=== PATIENT | male | born 1950 | race Caucasian/White ===

== ENCOUNTER → 2016-08-28 | Outpatient (CLI) | payer OTHER, MEDICARE ==
[~2016-08-28] MED LIST: AMLO-114 PO; ANDG TOP; ASCO500T16 PO; B-COCAP2 PO; CHOL100027 PO; LISI40TA PO; MAGN400T6 PO; OMEG12006 PO; VITA100C4 PO; VITATAB19 PO; ZINC30TA3 PO; calcium PO
[2016-08-28 13:42] LABS: COMPLETE YES; IG% 0.4 %; LYMPH % 46.5 %; LYMPH ABS # 2.17 K/uL (1.2-3.4); MEAN CELL VOLUME 88.2 fL (80-100); MEAN CORPUSCULAR HEMOGLOBIN 29.6 pg (25-34); MEAN CORPUSCULAR HGB CONC 33.6 g/dl (32-36); MONO % 8.6 %; NEUT % 44.5 %; PLATELET COUNT 132 K/uL (130-400); RED BLOOD COUNT 5.33 M/uL (4.7-6.1); WHITE BLOOD COUNT 4.67 K/uL (4.8-10.8)
[2016-08-28 14:14] LABS: CALCIUM 9.2 mg/dl (8.5-10.1)
[2016-08-28 14:25] LABS: ALB/GLOB RATIO 1.3 (0.9-2); ALT/SGPT 33 U/L (12-78); AST/SGOT 25 U/L (15-37); BLOOD UREA NITROGEN 24 mg/dl (7-18); BUN/CREATININE RATIO 24.9 (10-20); CARBON DIOXIDE 32 mmol/L (21-32); CHLORIDE 106 mmol/L (98-107); CHOLESTEROL 211 mg/dl (0-200); CHOLESTEROL/HDL RATIO 3.8; CREATININE 0.96 mg/dl (0.60-1.40); GLUCOSE 94 mg/dl (70-99); HDL CHOLESTEROL 55 mg/dl; LDL CHOLESTEROL CALCULATED 133 mg/dl; PHOSPHORUS 2.4 mg/dl (2.5-4.9); POTASSIUM 3.9 mmol/L (3.5-5.1); SODIUM 141 mmol/L (136-145); TRIGLYCERIDES 114 mg/dl (0-150); URIC ACID 6.3 mg/dl (2.6-7.2); VERY LOW DENSITY LIPOPROT CALC 23 mg/dl
[2016-08-28 14:34] LABS: ALKALINE PHOSPHATASE 53 U/L (45-117); C-REACTIVE PROTEIN < 0.29 mg/dl (0-0.29); FERRITIN 36.6 ng/ml (8.0-388.0); TOTAL IRON BINDING CAPACITY 308 mcg/dl (250-450)
[2016-08-28 14:59] LABS: ESTIMATED AVERAGE GLUCOSE 103 mg/dl; HA1C FLAG Normal (Normal)
[2016-08-31 01:12] LABS: GLIADIN DEAMIDATED IgA AB 2 UNITS (<20); GLIADIN DEAMIDATED IgG AB 3 UNITS (<20)
--- NOTE | 2016-09-11 11:50 | CODING QUERY MEDICAL NECESSITY ---
SUPPORTING DIAGNOSIS NEEDED Dr. Cerrato, A supporting diagnosis is required for the test/procedure performed on this patient in order for us to be reimbursed by the patient's insurance. Please provide a supporting diagnosis for the following test/procedure listed below next to the test name along with your signature. *If there is no additional diagnosis for this patient that would support the following test/procedure please document that below next to the test/procedure. Test(s)/Procedure(s) that require a supporting diagnosis: * [id number] PSA DIAGNOSIS: DATE OF SERVICE: 08/28/16 Provider Signature: Date: Thank you Ezequiel Heredia [facility] Once completed, please kindly fax back to [phone] For questions please call [phone]
== END | disposition home or self-care (01) ==
LOC: C.LABBC 11:47
PROVIDERS: ATTEND Family Medicine
DX: R73.09 Other abnormal glucose (principal); E55.9 Vitamin D deficiency, unspecified; D51.9 Vitamin B12 deficiency anemia, unspecified; R53.83 Other fatigue; M25.50 Pain in unspecified joint; N40.0 Benign prostatic hyperplasia without lower urinary tract symptoms

== ENCOUNTER → 2016-09-17 | Outpatient (CLI) | payer OTHER, MEDICARE ==
--- NOTE | 2016-09-17 15:29 | DIAGNOSTIC IMAGING REPORT ---
LEFT FIRST TOE RADIOGRAPHS CLINICAL HISTORY: Left toe injury 3 months ago. COMPARISON: None FINDINGS: Alignment of the left first toe is anatomic. A 3 mm bone fragment is noted along the medial aspect of the interphalangeal joint of the left first toe. There is associated soft tissue swelling. This represents an age indeterminate avulsed bone fragment. No additional fractures are identified. There is minimal arthritis within multiple articulations. IMPRESSION: 3 mm bone fragment along the medial aspect of the interphalangeal joint of the left first toe which represents an age indeterminate tiny avulsed bone fragment with associated soft tissue swelling. Electronically signed by: René Llamas M.D. 09/17/2016 3:28 PM Dictated Date/Time: 09/17/2016 3:26 PM
== END | disposition home or self-care (01) ==
LOC: C.RADBC 15:03
PROVIDERS: ATTEND Family Medicine
DX: S92.402A Displaced unspecified fracture of left great toe, initial encounter for closed fracture (principal); X58.XXXA Exposure to other specified factors, initial encounter

== ENCOUNTER → 2017-04-30 | Outpatient (CLI) | payer OTHER, MEDICARE ==
[2017-04-30 17:19] LABS: BLOOD UREA NITROGEN 26 mg/dl (7-18); CREATININE 0.97 mg/dl (0.60-1.40)
== END | disposition home or self-care (01) ==
LOC: C.LABBC 14:24
DX: H90.42 Sensorineural hearing loss, unilateral, left ear, with unrestricted hearing on the contralateral side (principal)

== ENCOUNTER → 2017-05-07 | Outpatient (CLI) | payer OTHER, MEDICARE ==
[~2017-05-07] MED LIST changes: +GADAVIST IV PRN
--- NOTE | 2017-05-07 14:09 | DIAGNOSTIC IMAGING REPORT ---
BRAIN COMBO FOR IAC HISTORY: 66 years-old Male H93.12 Tinnitus of left [id number] MALE WITH LEFT GREATER TH acute left-sided hearing loss COMPARISON: None available TECHNIQUE: Multiplanar multisequence MRI of the brain was obtained both with and without the use of 8 mL Gadavist utilizing internal auditory canal protocol. FINDINGS: The large [id number] 3d specialist localizer images demonstrate no gross abnormality. There is no restricted diffusion to suggest acute or subacute infarction. The midline structures including the corpus callosum, brainstem, optic chiasm, pituitary and pineal glands appear unremarkable in the sagittal T1 series. There is no cerebellar tonsillar herniation. Degenerative changes of the cervical spine are noted. There is no acute intracranial hemorrhage, midline shift, abnormal extra-axial collections or hydrocephalus. Mild degree of T2/FLAIR hyperintensities within the basal ganglia, periventricular and subcortical white matter are nonspecific however favor mild chronic microvascular ischemic changes. The major flow voids at the level of the skull base appear to be patent. Moderate mucoperiosteal thickening about the left maxillary sinus with mild mucosal thickening on the right. Polypoid mucosal thickening measuring up to 1.9 cm involves the posterior right maxillary antrum. Mild ethmoid sinus disease. Mastoid air cells are clear. Scalp, calvarium and soft tissues are within normal limits. The orbits are unremarkable. Indeterminate 4 mm skin lesion about the right aspect of the nose. The bilateral internal artery canals, 7th and 8th cranial nerves appear normal. No cerebellar pontine angle mass. The bilateral cisternal portions of the 5th cranial nerves are also within normal limits. No abnormal intra-axial or extra-axial enhancement. IMPRESSION: 1. No acute intracranial abnormality identified. 2. Normal appearance of the bilateral internal auditory canals, 7th and 8th cranial nerves without focal mass or abnormal enhancement. 3. Probable mild chronic microvascular ischemic changes. 4. Paranasal sinus disease as above. The above report was generated using voice recognition software. It may contain grammatical, syntax or spelling errors. Electronically signed by: Vernon Finney M.D. 05/07/2017 2:07 PM Dictated Date/Time: 05/07/2017 2:00 PM
== END | disposition home or self-care (01) ==
LOC: C.MRIBC 12:58
DX: H93.12 Tinnitus, left ear (principal); J01.80 Other acute sinusitis

== ENCOUNTER 2017-10-14 04:33 | Emergency (ER) | payer OTHER, MEDICARE ==
[~2017-10-14] VITALS: Ht 180.3 cm; Wt 82.0 kg
[~2017-10-14 04:33] MED LIST changes: -AMLO-114 PO; +AMLO10TA3 PO; -GADAVIST IV PRN; +OXYC-57 PO; +VITA100C2 PO; -VITA100C4 PO
[2017-10-14 04:37] VITALS: TEMP 36.7; Ht 180.3 cm; Wt 82.0 kg
[2017-10-14] MEDS ORDERED: FENTANYL CITRATE INJ 50 MCG/1 ML 2 ML VIAL IV STA (04:45)
[2017-10-14] MEDS ORDERED: LABETALOL HCL IV 5 MG/ML 20ML IV STA (04:45)
--- NOTE | 2017-10-14 04:52 | EMERGENCY ROOM VISIT NOTE ---
History First contact with patient: 04:36 Chief Complaint: ABDOMINAL PAIN Stated Complaint: HIGH BLOOD PRESSURE, CHEST PAIN History of Present Illness The patient is a 67 year old male who presents to the Emergency Room for evaluation of abdominal pain. Notes he recently had BP meds changed to Losartan about 3 weeks ago and since running mildly HTN. Throughout last 24 hours notes BP has been more and more elevated. This evening awoke with severe , tearing epigastric abdominal pain. Radiates bilateral flanks. Associated nausea and some lower substernal chest pain. Took extra Losartan without improvement followed by old doses of his Lisinopril and Amlodipine. Rest makes mildly better. Pain worse with walking/moving/sitting up. Denies trauma, injury. No fevers, chills, shob, headache, neck pain, vomiting, rashes, distension, leg swelling, urinary/bowel symptoms. This has not occurred previously. 2 Months ago he had left inguinal hernia repair without complication. Denies previous CT abdomen. Admits he ate dinner late and notes broccoli may have been bad. Past Medical History: HTN, low testosterone, DLP Past Surgical History: Left inguinal Hernia Repair 2018, Left Knee Surgery, Orchiectomy, Rectal Mass Removal (DFSP cancer) Past Family History: No cardiac nor aortic issues that he is aware of. Mother with dementia, father DMII&prostate [place] Social history: Periodic ETOH, No Drugs, No Smoking. Vegetarian. History of [employer]. . Review of Systems See HPI for pertinent positives & negatives. A total of 10 systems reviewed and were otherwise negative. Social History Smoking Status: Never Smoker Current/Historical Medications Scheduled Ascorbic Acid (Ascorbic Acid), 500 MG PO daily Calcium Carbonate-Vitamin D (Calcium 600 + D), 1 TAB PO DAILY Cholecalciferol (Vitamin D 1000 Unit), 4,000 INTER.UNIT PO DAILY Coenzyme Q10 (Ubidecarenone) (Co Q-10), 150 MG PO DAILY Losartan Potassium (Cozaar), 50 MG PO DAILY Magnesium Oxide (Mag-Ox), 400 MG PO QAM Gantt-3 Fatty Acids (Gantt 3), 1 CAP PO QAM Testosterone (Androgel), 1 PKT TOP QAM Vitamin A-Beta Carotene (Vitamin A), 1 TAB PO daily Vitamin B Cmplx/Vitc/Folic Ac (Nephrocaps), 1 CAP PO DAILY Vitamin E (Vitamin E 100 Iu), Unknown Dose PO DAILY Zinc Gluconate (Zinc), 1 TAB PO DAILY Physical Exam Vital Signs Date Time Temp Pulse Resp B/P (MAP) Pulse Ox O2 Delivery O2 Flow Rate FiO2 10/14/17 05:39 67 16 156/76 98 Room Air 10/14/17 04:46 69 10/14/17 04:37 36.7 69 20 202/105 98 Room Air Physical Exam GENERAL: Patient is very uncomfortable appearing and moderate distress. EYES: No scleral icterus, unremarkable pupils. ENT: Mucous membranes moist, no nasal congestion. NECK: No masses appreciated, no meningismus, trachea is midline. RESPIRATORY: No dyspnea. Clear to auscultation and equal bilaterally. No wheeze , no rhonchi. CARDIOVASCULAR: Regular rate and rhythm. No murmurs, rubs, gallops appreciated. GASTROINTESTINAL: Moderate epigastric TTP otherwise vague diffuse upper abdominal TTP, lower abdomen soft and non-tender. No peritonitis. Bowel sounds positive. No masses appreciated. BACK: No midline tenderness, no CVA tenderness EXTREMITIES: Normal motion all extremities, no cyanosis, no edema. NEUROLOGIC: Alert and oriented, no acute motor or sensory deficits, no focal weakness, cranial nerves grossly intact. SKIN: No rash, no jaundice, no diaphoresis. Medical Decision & Procedures ER Provider Diagnostic Interpretation: X ray results are stated below per my interpretation: Chest: 1 view: No infiltrate, no effusion, normal cardiac border. No change from 07/2017 Stat Rad Radiology results and stated below per my review and radiologist interpretation: CT HEAD: FINDINGS: No intracranial hemorrhage, abnormal intra- or extra-axial collections or parenchymal lesions are seen. The shape and configuration of the cortical sulci, basal cisterns and ventricles are within normal limits. The holland -white differentiation is preserved. No evidence of mass effect, midline shift, or edema. The osseous structures are unremarkable. The visualized portions of the paranasal sinuses are clear. IMPRESSION: Normal non-contrast CT scan of the head. Radiologist: Lebron Khanna MD CT ABDOMEN & PELVIS With Contrast: INDICATION: TECHNIQUE: Multiple, contiguous axial cuts of the abdomen and pelvis are obtained from the lung bases to the ischial tuberosities following the administration of IV contrast. Sagittal and coronal reformatted images are available. COMPARISON: FINDINGS: The lung bases are clear. The liver and spleen are normal in size and free of mass lesions. The gallbladder is mildly prominent. There is mild prominence intrahepatic ducts. Mild prominence the pancreatic duct. No focal mass noted. The adrenal gland are unremarkable. The kidneys are normal in size and contour. No lesion or hydronephrosis. The appendix is unremarkable, as is the rest of the GI tract. There is diverticulosis but there is no evidence for diverticulitis there is no inflammatory changes noted in the abdomen or pelvis. Aorta is normal caliber. No adenopathy or extraluminal air. The osseous structures are normal IMPRESSION: Unremarkable CT abdomen and pelvis. Radiologist: Lebron Khanna MD Laboratory Results 10/14/17 04:50 Red Blood Count 5.70, Mean Corpuscular Volume 89.6, Mean Corpuscular Hemoglobin 31.9, Mean Corpuscular Hemoglobin Concent 35.6, Mean Platelet Volume 9.8, Neutrophils (%) (Auto) 41.5, Lymphocytes (%) (Auto) 47.7, Monocytes (%) (Auto) 9.8, Eosinophils (%) (Auto) 0.0, Basophils (%) (Auto) 0.0, Neutrophils # (Auto) 2.54, Lymphocytes # (Auto) 2.92, Monocytes # (Auto) 0.60, Eosinophils # (Auto) 0.00, Basophils # (Auto) 0.00 10/14/17 04:50 Test 10/14/17 04:50 10/14/17 04:52 White Blood Count 6.12 K/uL (4.8-10.8) Red Blood Count 5.70 M/uL (4.7-6.1) Hemoglobin 18.2 g/dL (14.0-18.0) Hematocrit 51.1 % (42-52) Mean Corpuscular Volume 89.6 fL (80-100) Mean Corpuscular Hemoglobin 31.9 pg (25-34) Mean Corpuscular Hemoglobin Concent 35.6 g/dl (32-36) Platelet Count 119 K/uL (130-400) Mean Platelet Volume 9.8 fL (7.4-10.4) Neutrophils (%) (Auto) 41.5 % Lymphocytes (%) (Auto) 47.7 % Monocytes (%) (Auto) 9.8 % Eosinophils (%) (Auto) 0.0 % Basophils (%) (Auto) 0.0 % Neutrophils # (Auto) 2.54 K/uL (1.4-6.5) Lymphocytes # (Auto) 2.92 K/uL (1.2-3.4) Monocytes # (Auto) 0.60 K/uL (0.11-0.59) Eosinophils # (Auto) 0.00 K/uL (0-0.5) Basophils # (Auto) 0.00 K/uL (0-0.2) RDW Standard Deviation 41.5 fL (36.4-46.3) RDW Coefficient of Variation 12.8 % (11.5-14.5) Immature Granulocyte % (Auto) 1.0 % Immature Granulocyte # (Auto) 0.06 K/uL (0.00-0.02) Urine Color YELLOW Urine Appearance CLEAR (CLEAR) Urine pH 8.5 (4.5-7.5) Urine Specific [place] 1.012 (1.000-1.030) Urine Protein NEG (NEG) Urine Glucose (UA) NEG (NEG) Urine Ketones NEG (NEG) Urine Occult Blood NEG (NEG) Urine Nitrite NEG (NEG) Urine Bilirubin NEG (NEG) Urine Urobilinogen NEG (NEG) Urine Leukocyte Esterase NEG (NEG) Urine WBC (Auto) 0 /hpf (0-5) Urine RBC (Auto) 0-4 /hpf (0-4) Urine Hyaline Casts (Auto) 0 /lpf (0-5) Urine Epithelial Cells (Auto) 0-5 /lpf (0-5) Urine Bacteria (Auto) NEG (NEG) Est Creatinine Clear Calc Drug Dose 73.4 ml/min Estimated GFR () 85.7 Estimated GFR (Non- 73.9 BUN/Creatinine Ratio 24.6 (10-20) Calcium Level 9.2 mg/dl (8.5-10.1) Total Bilirubin 1.2 mg/dl (0.2-1) Direct Bilirubin 0.4 mg/dl (0-0.2) Aspartate Amino Transf (AST/SGOT) 140 U/L (15-37) Alanine Aminotransferase (ALT/SGPT) 92 U/L (12-78) Alkaline Phosphatase 87 U/L (45-117) Total Creatine Kinase 172 U/L (39-308) Creatine Kinase MB 2.5 ng/ml (0.5-3.6) Creatine Kinase MB Ratio 1.5 (0-3.0) Troponin I < 0.015 ng/ml (0-0.045) Total Protein 7.6 gm/dl (6.4-8.2) Albumin 3.9 gm/dl (3.4-5.0) Lipase 87 U/L (73-393) Bedside Hemoglobin 17.7 g/dl (14.0-18.0) Bedside Hematocrit 52 % (42-52) Bedside Sodium 144 mEq/L (135-144) Bedside Potassium 3.6 mEq/L (3.3-5.0) Bedside Chloride 101 mEq/L (101-112) Bedside Total CO2 29 mEq/l (24-31) Anion Gap 18.0 mmol/L (16-25) Bedside Blood Urea Nitrogen 28 mg/dl (7-18) Bedside Creatinine 0.9 mg/dl (0.6-1.3) Bedside Glucose (other) 101 mg/dl (70-99) Bedside Ionized Calcium (Kat) 1.22 mmol/l (1.12-1.32) Medications Administered Medications (Trade) Dose Ordered Sig/Cj Route Start Time Stop Time Status Last Admin Dose Admin Fentanyl Citrate (Fentanyl Inj) 100 mcg NOW STAT IV 10/14/17 04:45 10/14/17 04:47 DC 10/14/17 04:52 100 MCG Labetalol HCl (Normodyne IV) 10 mg NOW STAT IV 10/14/17 04:45 10/14/17 04:47 DC 10/14/17 04:53 10 MG Ondansetron HCl (Zofran Inj) 4 mg NOW STAT IV 10/14/17 05:14 10/14/17 05:15 DC 10/14/17 05:14 4 MG ECG Per My Interpretation Indication: abdominal pain Rate (beats per minute): 68 Rhythm: normal sinus Findings: no acute ischemic change, no ectopy, other (QTC 401) Comparison ECG Date: No change from 22-Jul-17 Change: no significant change Medical Decision Differential: Cholecystitis, Gallbladder disfunction, Hepatic Disfunction, Gastritis/PUD, Pancreatitis, ACS, Aortic Pathology, amongst other pathologies entertained. 67 yr old male with nausea, vomiting, epigastric pain and hypertension. This started after very stressful day yesterday and admits he may have eaten bad food yesterday. CT head done given HTN, history of cancer, and fact he was so nauseous which was fortunately negative. EKG unchanged from previous EKG. CT abdo pelv with mildly distended gallbladder (and stomach) though no acute process otherwise. Trop x 2 negative. Feeling much better though did have episode of vomiting with non-bloody and feeling much better. WBC OK. US GB with mild CBD dilation though no cholecystitis. I feel LFT bumps more likely are from vomiting than acute obstructive findings, especially given no further pain and soft abdomen. He wishes to try seeing how things do at home. He will contact PCP to see how to manage BP. He will follow up with PCP to discuss HTN , GB polyps, Polycythemia, and further work-up for findings. Stable and feels well at discharge. Will take BP med once he gets home. Reviewed symptoms requiring RTED. Head Trauma GCS Score: 15 Medication Reconcilliation Current Medication List: was personally reviewed by me Blood Pressure Screening Patient's blood pressure: Elevated blood pressure Blood pressure disposition: Referred to PCP Impression Primary Impression: Epigastric abdominal pain Additional Impressions: Severe hypertension Gallbladder polyp Elevated LFTs Polycythemia Departure Information Dispostion Home / Self-Care Condition GOOD Referrals Brennon Cerrato M.D. (PCP) Patient Instructions My [facility] Additional Instructions Please follow up with your primary care provider to discuss a few things noted during today's visit: Elevated Hemoglobin (18.2) - This is just mildly above your previous labs and may be elevated for a variety of reasons. Polyps In Gallbladder - These usually require repeat Ultrasound in 6 months to make sure no change. Hypertension - Discuss further management of blood pressure Elevated Liver Tests - Just mildly elevated which can be from a variety of reasons and should just be rechecked to make sure they normalize. Review Rest of Labs and Imaging Return if worsening pain, vomiting, fevers, passing out, or other concerns. Your blood pressure was elevated during this visit. This is quite common in many people who are being evaluated in the Emergency Department for many reasons. However, it is important that you have your Primary Care Provider recheck your blood pressure and discuss whether treatment will be needed. 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 If you develop severe headaches, chest pain, weakness in arms or legs, or other concerning symptoms call 911. Problem Qualifiers
[2017-10-14] MEDS ORDERED: OPTIRAY 320 IV PRN (05:00)
[2017-10-14 05:03] LABS: HEMATOCRIT 51.1 % (42-52); HEMOGLOBIN 18.2 g/dL (14.0-18.0); IG# 0.06 K/uL (0.00-0.02); LYMPH % 47.7 %; LYMPH ABS # 2.92 K/uL (1.2-3.4); MEAN CELL VOLUME 89.6 fL (80-100); MEAN CORPUSCULAR HEMOGLOBIN 31.9 pg (25-34); MEAN CORPUSCULAR HGB CONC 35.6 g/dl (32-36); MEAN PLATELET VOLUME 9.8 fL (7.4-10.4); MONO % 9.8 %; NEUT % 41.5 %; NEUT ABS # 2.54 K/uL (1.4-6.5); PLATELET COUNT 119 K/uL (130-400); RED CELL DISTRIBUTION WIDTH CV 12.8 % (11.5-14.5); RED CELL DISTRIBUTION WIDTH SD 41.5 fL (36.4-46.3); WHITE BLOOD COUNT 6.12 K/uL (4.8-10.8)
[2017-10-14 05:06] LABS: ISTAT CREATININE 0.9 mg/dl (0.6-1.3); ISTAT IONIZED CALCIUM 1.22 mmol/l (1.12-1.32); ISTAT POTASSIUM 3.6 mEq/L (3.3-5.0)
[2017-10-14] MEDS ORDERED: ONDANSETRON INJ 2 MG/ML 2 ML VIAL IV STA ×2 (05:14→07:29)
[2017-10-14 05:26] LABS: ALBUMIN 3.9 gm/dl (3.4-5.0); ALKALINE PHOSPHATASE 87 U/L (45-117); ALT/SGPT 92 U/L (12-78); AST/SGOT 140 U/L (15-37); BLOOD UREA NITROGEN 26 mg/dl (7-18); CALCIUM 9.2 mg/dl (8.5-10.1); CARBON DIOXIDE 28 mmol/L (21-32); CKMB 2.5 ng/ml (0.5-3.6); CREATININE 1.04 mg/dl (0.60-1.40); GLUCOSE 97 mg/dl (70-99); LIPASE 87 U/L (73-393); POTASSIUM 3.6 mmol/L (3.5-5.1); SODIUM 142 mmol/L (136-145); TOTAL PROTEIN 7.6 gm/dl (6.4-8.2)
--- NOTE | 2017-10-14 06:44 | DIAGNOSTIC IMAGING REPORT ---
CT OF THE HEAD WITHOUT CONTRAST CLINICAL HISTORY: Altered mental status. Hypertension. COMPARISON STUDY: MRI of the brain May 07, 2017. CT DOSE: 614.27 mGy.cm TECHNIQUE: Helical axial images of the head were obtained without IV contrast. Automated exposure control was utilized for the study. A dose lowering technique was utilized adhering to the principles of ALARA. FINDINGS: No acute intracranial hemorrhage, midline shift or mass effect is present. Ventricular system is normal. Basilar cisterns are patent. There are no extra-axial collections. Khan-white differentiation is preserved. There are no findings to suggest acute thrombosis or acute territorial infarct. There are no significant calvarial abnormalities. Visualized portions of the sinuses and mastoid air cells are clear. IMPRESSION: No acute intracranial findings. Electronically signed by: René Llamas M.D. 10/14/2017 6:43 AM Dictated Date/Time: 10/14/2017 6:41 AM
--- NOTE | 2017-10-14 06:45 | DIAGNOSTIC IMAGING REPORT ---
CHEST ONE VIEW PORTABLE CLINICAL HISTORY: Chest pain. COMPARISON STUDY: Chest CT October 13, 2015 and chest radiograph July 22, 2017. FINDINGS: Lung volumes are normal. There is no pneumothorax or pleural effusion. No consolidation is present. There is no evidence for pulmonary edema. Cardiac size is normal. Mediastinal contours are normal. IMPRESSION: No acute cardiopulmonary findings. Electronically signed by: René Llamas M.D. 10/14/2017 6:44 AM Dictated Date/Time: 10/14/2017 6:43 AM
[2017-10-14] MEDS ORDERED: LOSA50TA6 PO (07:04)
[2017-10-14] MEDS ORDERED: CALC-20 PO (07:04)
[2017-10-14] MEDS ORDERED: COEN150C PO (07:04)
--- NOTE | 2017-10-14 07:13 | DIAGNOSTIC IMAGING REPORT ---
ABDOMINAL ULTRASOUND, RIGHT UPPER QUADRANT HISTORY: Epigastric pain, nausea, mild distended gallbladder on CT. COMPARISON: CT of the abdomen and pelvis October 14, 2017. FINDINGS: Liver morphology is normal. No hepatic lesions are identified minimal intra and extrahepatic biliary ductal dilatation is noted. Common bile duct measures 7 mm in caliber. No common bile duct calculi identified. Pancreatic body is normal. Head and tail are obscured. No gallbladder wall thickening is noted. No sonographic Cruz sign was elicited. The gallbladder is slightly distended. Multiple echogenic nonmobile structures adherent to the gallbladder wall suggest polyps which measure up to 6 mm. A few contain color flow. No shadowing calculi are identified. Minimal sludge is noted. There is no right hydronephrosis. Right renal pelvis is prominent. IMPRESSION: 1. Multiple echogenic nonmobile structures adherent to the gallbladder wall which favor polyps and up to 6 mm. No shadowing gallstones. Mild gallbladder distention. However, no sonographic evidence of acute cholecystitis. A follow-up ultrasound in 6 months to ensure stability of the suspected polyps is recommended. 2. Minimal biliary ductal dilatation which could be correlated with obstructive liver function tests. Electronically signed by: René Llamas M.D. 10/14/2017 7:12 AM Dictated Date/Time: 10/14/2017 7:05 AM
--- NOTE | 2017-10-14 07:59 | DIAGNOSTIC IMAGING REPORT ---
ABD/PELVIS IV CONTRAST ONLY CLINICAL HISTORY: 67 years-old Male presenting with diffuse upper abdominal pain, hypertension. TECHNIQUE: Multidetector CT of the abdomen and pelvis was performed after the administration of intravenous contrast. IV contrast: 92 mL of Optiray 320. A dose lowering technique was used consistent with the principles of ALARA (as low as reasonably achievable). COMPARISON: None. CT DOSE (mGy.cm): The estimated cumulative dose is 325.76 mGy.cm. FINDINGS: Bundle Clerk topogram: Unremarkable. Lung bases: Minimal basilar opacities, likely atelectasis. Solid peripheral 7 mm pulmonary nodule in the posterior basal right lower lobe (series 3 image 16). Solid peripheral 3 mm pulmonary nodule in the posterior basal right lower lobe (series 3 image 8). Solid peripheral 2 mm pulmonary nodule in the posterior basal left lower lobe (series 3 image 9). Normal heart size. No pericardial or pleural effusion. Liver: Congenital hypoplasia of the medial segments of the left hepatic lobe.. No liver lesion. Patent hepatic vasculature. Biliary: Mild central predominant intrahepatic biliary ductal dilatation. Common duct not dilated. Multiple small hyperdense foci measuring up to 3 mm adherent to the gallbladder wall are nondependent and may represent polyps. No pathologic gallbladder distention or pericholecystic inflammatory change. Pancreas: Mild prominence of the pancreatic duct. Normal pancreatic parenchyma. Spleen: Mildly enlarged measuring 13.7 cm in maximal sagittal dimension. Adrenal glands: Nodular thickening of the left adrenal gland, nonspecific. Right adrenal gland normal. Kidneys and ureters: Mild perinephric fat stranding, nonspecific. Renal parenchyma is symmetric and normal. Mild pelvocaliectasis bilaterally. No nephrolithiasis or convincing evidence of obstruction. Ureters normal. Bladder: Normal. Pelvic organs: Prostate enlargement likely secondary to benign prostatic hyperplasia. Bowel: A few diverticula may be present in the colon. Moderate stool burden throughout the normal caliber colon. The appendix is normal. No bowel obstruction. Small hiatal hernia. The distal esophagus is mildly distended with fluid. Layering hyperdensity noted in the gastric fundus. Stomach is mildly distended. Borderline gastric wall thickening at the antrum. Peritoneal cavity: No free fluid or intraperitoneal gas. Lymph nodes: No enlarged lymph nodes in the abdomen or pelvis. Vasculature: Aorta and IVC patent and normal in caliber. Left varicocele noted. Abdominal wall: Postsurgical changes of the left lower quadrant possibly from prior hernia repair. Musculoskeletal: Degenerative changes of the spine. IMPRESSION: 1. No acute intra-abdominal pathology. 2. Suspected diminutive gallbladder polyps measuring up to 3 mm. These likely represent benign cholesterol polyps. 3. Mild splenomegaly. 4. Prostatomegaly. 5. Solid pulmonary nodules measuring up to 7 mm at the lung bases. Follow-up per [employer]l Society 2017 recommendations below. The report will be called/faxed according to standard departmental protocol. Please refer to below summary of Fleischner Society 2017 recommendations for follow-up of incidental CT nodules (Nida Conde et al. Guidelines for management of incidental pulmonary nodules detected on CT images: From the Fleischner Society 2017. Radiology 2017; 284: 228-243.) SOLID NODULES Single nodule; size < 6 mm * Low risk patients: No routine follow-up * High risk patients: Optional CT at 12 months Single nodule; size 6-8 mm * Low risk patients: CT at 6-12 months, then consider CT at 18-24 months * High risk patients: CT at 6-12 months, then at 18-24 months Single nodule; size > 8 mm * Either low or high risk patients: Considered CT at 3 months, PET/CT, or tissue sampling Multiple nodules; size < 6 mm * Low risk patients: No routine follow up * High risk patients: Optional CT at 12 months Multiple nodules; size 6-8 mm * Low risk patients: CT at 3-6 months, then consider CT at 18-24 months * High risk patients: CT at 3-6 months, then at 18-24 months Multiple nodules; size > 8 mm * Low risk patients: CT at 3-6 months, then consider at 18-24 months * High risk patients: CT at 3-6 months, then at 18-24 months SUBSOLID NODULES Single ground-glass nodule * Nodule size < 6 mm: No routine follow-up * Nodule size > or = 6 mm: CT at 6-12 months to confirm persistence, then CT every 2 years until 5 years Single part-solid nodule * Nodule size < 6 mm: No routine follow-up * Nodules size > or = 6 mm: CT at 3-6 months to confirm persistence. If unchanged and solid component remains < 6 mm, annual CT should be performed for 5 years Multiple nodules * Nodule size < 6 mm: CT at 3-6 months. If stable, consider CT at 2 and 4 years. * Nodules size > or = 6 mm: CT at 3-6 months. Subsequent management based on the most suspicious nodule(s) NOTE: 1) These guidelines apply to incidental nodules. These guidelines do NOT apply to patients younger than 35 years, immunocompromised patients, or patients with cancer. 2) Risk categories: * Low risk patients: Minimal or absent history of smoking and/or other known risk factors * High risk patients: History of smoking, exposure to other carcinogens, emphysema, fibrosis, upper lobe location, family history of lung cancer, etc. 3) If a nodule up to 8 mm is partly solid or is ground glass, further follow-up is required after 24 months to exclude possible slow growing adenocarcinoma. Electronically signed by: Hernando Motley M.D. 10/14/2017 7:57 AM Dictated Date/Time: 10/14/2017 6:55 AM
[2017-10-14 08:14] VITALS: BP 151/70; PULSE 71; O2SAT 96
== END 2017-10-14 08:17 | disposition home or self-care (01) ==
LOC: C.EDB 04:34 → C.EDA 08:17
DX: R10.13 Epigastric pain (principal); I10 Essential (primary) hypertension; K82.4 Cholesterolosis of gallbladder; R79.89 Other specified abnormal findings of blood chemistry; D75.1 Secondary polycythemia; R86.8 Other abnormal findings in specimens from male genital organs; Z98.890 Other specified postprocedural states

== ENCOUNTER 2020-05-25 20:34 | Inpatient (IN) ==
--- NOTE | 2020-05-25 21:09 | Emergency Department Note ---
History of Present Illness General Chief complaint: Hip Pain Stated complaint: BROKEN R HIP Time Seen by Provider: 05/25/20 20:53 Source: patient History of Present Illness Provider complaint: Right hip pain Onset (ago): month(s) Location: hip and right Radiation: non-radiation Pain Consistency: + intermittent Maximum Pain Intensity: 0 Quality: + dull Exacerbated By: + movement Associated symptoms: no chest pain, no cough, no fever/chills, no headaches, no nausea/vomiting and no shortness of breath This is a 69-year-old male sent in by his primary care physician for a hip fracture. The patient complains of hip pain for a month. He states that it was icy outside and he slipped on the ice falling onto his right hip. He has had a dull pain to that hip since the fall. He states it is worse when he tries to walk on it. It does not radiate. No associated numbness or weakness although he has chronic neuropathy. He states that he has been walking around using a mop handle or a stepstool. He saw his doctor today who ordered an x-ray and they found a fracture to his hip. He was sent to the emergency department for further care. He states he does not have any significant pain at this time. It is painful only when he moves around. He denies any recent illness, fever, cough, chest pain, shortness of breath, abdominal pain, vomiting, diarrhea or urinary symptoms. He denies any anticoagulant use. Home Medications Medication Instructions Recorded Confirmed Type ascorbic acid (vitamin C) 500 mg PO .TAKE 1 TABLET DAILY. 02/26/19 03/05/19 History tablet cholecalciferol (vitamin D3) 50 unit PO DAILY 02/26/19 03/05/19 History mcg (2,000 unit) tablet magnesium 1 ea PO DAILY 02/26/19 03/05/19 History omega-3 acid ethyl esters 1 gram PO DAILY 02/26/19 03/05/19 History capsule prasterone (dhea) 25 mg capsule mg PO .TAKE DIRECTED. 02/26/19 03/05/19 Hi story testosterone 50 mg/5 gram (1 %) 1 pkt TD DAILY 02/26/19 03/05/19 History transdermal gel vitamin A palmitate 1 ea PO DAILY 02/26/19 03/05/19 History vitamin B complex 1 cap PO DAILY 02/26/19 03/05/19 History vitamin E succinate 400 unit tablet unit PO .TAKE 1 TABLET DAILY. 02/26/19 03/05/19 History amlodipine 5 mg tablet 5 mg PO DAILY 03/05/19 03/05/19 History losartan 50 mg tablet 50 mg PO DAILY tab 03/05/19 05/25/20 History ezetimibe 10 mg PO DAILY 05/25/20 05/25/20 History gabapentin 100 mg PO HS 05/25/20 05/25/20 History hydrochlorothiazide 12.5 mg PO DAILY 05/25/20 05/25/20 History Allergies Allergy/AdvReac Type Severity Reaction Status Date / Time Sulfate Allergy Mild CHILD - Uncoded 03/05/19 11:40 nausea Past Med/Surg History Medical History (Updated 05/25/20 @ 22:13 by Pierre Fitzgerald MD) H/O complications due to general anesthesia Hypertension Neuropathy Surgical History H/O hernia repair History of orchiectomy S/P knee surgery Family History Mother Dementia Father Diabetes Prostate cancer Social History Smoking Status: Never smoker Feels Safe at Home: Yes Review of Systems See HPI for pertinent positives & negatives. and A total of 10 systems reviewed and were otherwise negative Physical Exam Vital Signs Vital Signs - 24 hr 05/25/20 20:39 Temperature 37.1 C Temperature Source Temporal Artery Scan Pulse Rate 113 H Respiratory Rate 18 Respiratory Depth Normal Blood Pressure 166/87 H Blood Pressure Mean 113 Pulse Oximetry 97 Oxygen Delivery Method Room Air Sepsis Recent Fever Within 48 Hours No Sepsis New/Unexplained Change in Mental Status No Sepsis Action Taken by Nursing No Action Required Constitutional: Vital signs reviewed. Eyes: Pupils are equal round reactive to light. Conjunctiva are noninjected. ENT: Pharynx is clear without erythema or exudate. Mucous membranes are moist. Neck supple without meningeal signs. Respiratory: Clear to auscultation bilaterally. Breath sounds are equal bilaterally. Cardiovascular: Regular rate and rhythm. No rubs or gallops. GI: Soft, nondistended and nontender. Bowel sounds are present. Musculoskeletal: Mild tenderness to the right hip. No shortening. Normal distal pulses. Neurovascular intact distally. Integumentary: No cyanosis. or jaundice. Neurological: The patient is awake and alert. No focal deficits. Psychiatric: Normal affect. Not anxious appearing. Medical Decision Making Differential Diagnosis Hip fracture, contusion, strain, dislocation, Arthritis Medical Records Attestation: I reviewed the patient's medical records. I did perform a limited focused review of portions of the patient's old chart on the electronic medical record. The patientHad an x-ray of his right hip today which showed the following: XR hip RT 2V w pelvis CLINICAL HISTORY: M25.551 RIGHT HIP PAIN STATUS POST TRAUMA COMPARISON: None. DISCUSSION: 3 views reveal a mildly displaced subcapital right hip fracture. This report will be called. IMPRESSION: 1. Mildly displaced subcapital right hip fracture. ACT 112: Negative or not required by law. Electronically signed by: Trevor Canela M.D. 05/25/2020 3:55 PM Dictated: 05/25/20 1553Transcribed: 05/25/20 155 Home Medications Current Medication List: was personally reviewed by me Laboratory Data Attestation: I reviewed the patient's lab results. Result diagrams: 05/25/20 21:07 05/25/20 21:07 Lab Results 05/25/20 05/25/20 05/25/20 Range/Units 21:07 21:07 21:07 WBC 6.75 (4.8-10.8) K/uL RBC 5.20 (4.7-6.1) M/uL Hgb 16.7 (14.0-18.0) g/dL Hct 46.5 (42-52) % MCV 89.4 (80-100) fL MCH 32.1 (25-34) pg MCHC 35.9 (32-36) g/dL RDW Std Deviation 41.6 (36.4-46.3) fL RDW Coeff of Kush 12.8 (11.5-14.5) % Plt Count 130 (130-400) K/uL MPV 9.5 (7.4-10.4) fL Immature Gran % (Auto) 0.4 % Neut % (Auto) 65.5 % Lymph % (Auto) 28.3 % [place]urry % (Auto) 5.8 % Eos % (Auto) 0.0 % Baso % (Auto) 0.0 % Neut # (Auto) 4.42 (1.4-6.5) K/uL Lymph # (Auto) 1.91 (1.2-3.4) K/uL Scurry # (Auto) 0.39 (0.11-0.59) K/uL Eos # (Auto) 0.00 (0-0.5) K/uL Baso # (Auto) 0.00 (0-0.2) K/uL Immature Gran # (Auto) 0.03 H (0.00-0.02) K/uL PT (9.0-12.0) Seconds INR (0.9-1.1) APTT (21.0-31.0) Seconds PTT Ratio Sodium 144 (136-145) mmol/L Potassium 3.7 (3.5-5.1) mmol/L Chloride 111 H (98-107) mmol/L Carbon Dioxide 30 (21-32) mmol/L Anion Gap 3.0 (3-11) BUN 26 H (7-18) mg/dl Creatinine 1.11 (0.6-1.4) mg/dl Est Cr Clr Drug Dosing Not Reportable Est GFR ( Amer) 78.1 Est GFR (Non-Af Amer) 67.4 BUN/Creatinine Ratio 23.7 H (10-20) Glucose 139 H (70-99) mg/dl Calcium 9.7 (8.5-10.1) mg/dl Total Bilirubin 1.2 H (0.2-1) mg/dl AST 24 (15-37) U/L ALT 36 (12-78) U/L Alkaline Phosphatase 74 (45-117) U/L Total Protein 6.7 (6.4-8.2) gm/dl Albumin 3.8 (3.4-5.0) gm/dl Globulin 2.9 (2.5-4.0) gm/dl Albumin/Globulin Ratio 1.3 (0.9-2) COVID-19 Eval Order Blood Type O Positive Antibody Screen NEGATIVE 05/25/20 05/25/20 Range/Units 21:07 21:38 WBC (4.8-10.8) K/uL RBC (4.7-6.1) M/uL Hgb (14.0-18.0) g/dL Hct (42-52) % MCV (80-100) fL MCH (25-34) pg MCHC (32-36) g/dL RDW Std Deviation (36.4-46.3) fL RDW Coeff of Kush (11.5-14.5) % Plt Count (130-400) K/uL MPV (7.4-10.4) fL Immature Gran % (Auto) % Neut % (Auto) % Lymph % (Auto) % [place]urry % (Auto) % Eos % (Auto) % Baso % (Auto) % Neut # (Auto) (1.4-6.5) K/uL Lymph # (Auto) (1.2-3.4) K/uL Scurry # (Auto) (0.11-0.59) K/uL Eos # (Auto) (0-0.5) K/uL Baso # (Auto) (0-0.2) K/uL Immature Gran # (Auto) (0.00-0.02) K/uL PT 10.6 (9.0-12.0) Seconds INR 1.0 (0.9-1.1) APTT 23.4 (21.0-31.0) Seconds PTT Ratio 0.9 Sodium (136-145) mmol/L Potassium (3.5-5.1) mmol/L Chloride (98-107) mmol/L Carbon Dioxide (21-32) mmol/L Anion Gap (3-11) BUN (7-18) mg/dl Creatinine (0.6-1.4) mg/dl Est Cr Clr Drug Dosing Est GFR ( Amer) Est GFR (Non-Af Amer) BUN/Creatinine Ratio (10-20) Glucose (70-99) mg/dl Calcium (8.5-10.1) mg/dl Total Bilirubin (0.2-1) mg/dl AST (15-37) U/L ALT (12-78) U/L Alkaline Phosphatase (45-117) U/L Total Protein (6.4-8.2) gm/dl Albumin (3.4-5.0) gm/dl Globulin (2.5-4.0) gm/dl Albumin/Globulin Ratio (0.9-2) COVID-19 Eval Order [facility]FluR[facility] at [facility] Blood Type Antibody Screen Imaging Data Attestation: I personally reviewed and interpreted this imaging study as follows: My Impression: Chest x-ray per my interpretation shows no acute cardiopulmonary process. Radiologist's Impression: ECG Data Attestation: I personally reviewed and interpreted this ECG as follows: Indication: + other (Hip fracture) Rate (beats per minute): 95 Rhythm: + normal sinus ECG [place]: + Right axis deviation ECG ST segments: no ST elevation ECG Findings: no PVCs MDM Narrative I did evaluate the patient as noted above. The patient is presenting with a hip fracture incurred about a month ago. He has been hobbling around using a mop handle and stepstool. He finally had an x-ray today which showed a subcapital fracture that is mildly displaced. The patient is requesting Dr. Miles of orthopedics. He does not wish to have any pain medicines at this time. IV access was established. I did order and personally review the patient's 12-lead EKG as described above. He has no acute ischemic changes. I did order and personally reviewed the images of the patient's chest x-ray as described above. There is no evidence of acute cardiopulmonary abnormality. I did order and review the patient's blood work as noted in the electronic medical record. CBC is unremarkable without leukocytosis or anemia. Electrolytes demonstrate a chloride of 111. Glucose is 139. The patient was informed of his test results. I did discuss the case with the telephonic nurse case manager. The hospitalist was informed. Impression & Plan Fracture of hip, right, closed Discharge Plan Visit Data Chief Complaint: Hip Pain Stated Complaint: BROKEN R HIP ED Provider: Pierre Fitzgerald Discharge Problem: Fracture of hip, right, closed Patient Disposition: Being Evaluated by Hospitalist Forms Stand Alone Forms: My [facility] Prescriptions Prescriptions: No Action omega-3 acid ethyl esters 1 gram capsule PO DAILY RF: 0 testosterone 50 mg/5 gram (1 %) gel 1 pkt TD DAILY RF: 0 vitamin A palmitate 1 ea PO DAILY RF: 0 vitamin B complex capsule 1 cap PO DAILY RF: 0 ascorbic acid (vitamin C) 500 mg tablet PO .TAKE 1 TABLET DAILY. RF: 0 vitamin E succinate 400 unit tablet PO .TAKE 1 TABLET DAILY. RF: 0 cholecalciferol (vitamin D3) 2,000 unit tablet PO DAILY RF: 0 prasterone (dhea) 25 mg capsule PO .TAKE DIRECTED. RF: 0 magnesium 1 ea PO DAILY RF: 0 losartan 50 mg tablet 50 mg PO DAILY RF: 0 amlodipine 5 mg tablet 5 mg PO DAILY RF: 0 hydrochlorothiazide 12.5 mg capsule 12.5 mg PO DAILY RF: 0 gabapentin 100 mg capsule 100 mg PO HS RF: 0 ezetimibe 10 mg tablet 10 mg PO DAILY RF: 0 Referrals Referrals: Brennon Cerrato MD [Primary Care Provider] - Discharge Problem: Fracture of hip, right, closed Qualifiers: Encounter type: initial encounter Qualified Code(s): S72.001A - Fracture of unspecified part of neck of right femur, initial encounter for closed fracture
[2020-05-25 21:20] LABS: Hematocrit (blood only) 46.5 % (42-52); Hemoglobin 16.7 g/dL (14.0-18.0); Immature Granulocytes # (auto) 0.03 K/uL (0.00-0.02); Immature Granulocytes % (auto) 0.4 %; Lymphocytes # (auto) 1.91 K/uL (1.2-3.4); Lymphocytes % (auto) 28.3 %; Mean Corpuscular Hemoglobin 32.1 pg (25-34); Mean Corpuscular Hgb Conc 35.9 g/dL (32-36); Mean Corpuscular Volume 89.4 fL (80-100); Mean Platelet Volume 9.5 fL (7.4-10.4); Monocytes # (auto) 0.39 K/uL (0.11-0.59); Monocytes % (auto) 5.8 %; Neutrophils # (auto) 4.42 K/uL (1.4-6.5); Neutrophils % (auto) 65.5 %; Platelet Count 130 K/uL (130-400); RDW Coefficient of Variation 12.8 % (11.5-14.5); RDW Standard Deviation 41.6 fL (36.4-46.3); White Blood Count 6.75 K/uL (4.8-10.8)
[2020-05-25 21:32] LABS: Partial Thromboplastin Ratio 0.9; Partial Thromboplastin Time 23.4 Seconds (21.0-31.0); Prothrombin Time 10.6 Seconds (9.0-12.0)
[2020-05-25 21:36] LABS: Albumin Level 3.8 gm/dl (3.4-5.0); Aspartate Aminotransferase 24 U/L (15-37); BUN Creatinine Ratio 23.7 (10-20); Blood Urea Nitrogen 26 mg/dl (7-18); Calcium 9.7 mg/dl (8.5-10.1); Carbon Dioxide 30 mmol/L (21-32); Chloride 111 mmol/L (98-107); Est GFR (African American) 78.1; Est GFR (Non-African American) 67.4; Glucose 139 mg/dl (70-99); Potassium 3.7 mmol/L (3.5-5.1); Sodium 144 mmol/L (136-145)
[2020-05-25 21:39] LABS: Alanine Aminotransferase 36 U/L (12-78); Albumin Globulin Ratio 1.3 (0.9-2); Alkaline Phosphatase 74 U/L (45-117); Bilirubin,Total 1.2 mg/dl (0.2-1); Globulin 2.9 gm/dl (2.5-4.0); Total Protein 6.7 gm/dl (6.4-8.2)
[2020-05-25 22:31] LABS: Influenza A virus by PCR Negative (Neg); Influenza B virus by PCR Negative (Neg); RSV by PCR Negative (Neg); SARS CoV2 RNA(COVID-19) InHosp NEGATIVE (Negative)
[2020-05-25 23:25] LABS: Appearance Urine Clear (Clear); Bacteria Urine Automated Negative (Negative); Bilirubin Urine Negative (Negative); Blood Urine Negative (Negative); Color Urine Yellow; Glucose Urine UA Negative (Negative); Ketones Urine 1+ (Negative); Leukocyte Esterase Urine Negative (Negative); Nitrite Urine Negative (Negative); Protein Urine 1+ (Negative); RBC Urine Automated 0-4 /hpf (0-4); Specific Gravity Urine 1.031 (1.000-1.030); Urobilinogen Urine Negative (Negative)
--- NOTE | 2020-05-25 23:40 | History & Physical Report ---
Date of Service May 25, 2020 Assessment & Plan (1) Fracture of hip, right, closed: NPO after midnight Admit to medical surgical floor LR at 80 mils per hour Acetaminophen 650 mg p.o. every 6 hours as needed mild pain or fever [place] 5/325: 1 p.o. every 6 hours as needed moderate pain. 2 p.o. every 6 hours as needed severe pain Dilaudid 0.25 mg IV every 3 hours as needed moderate pain Dilaudid 0.5 mg IV every 3 hours as needed severe pain Zofran 4 mg IV every 6 hours as needed Geriatric hip fracture protocol order set Consult orthopedic surgery Present on Admission?: Yes (2) Hypertension: Continue losartan with hold parameters Present on Admission?: Yes (3) Hyperlipidemia: Continue Zetia Present on Admission?: Yes History of Present Illness Chief Complaint: Patient is referred to the emergency department after x-ray performed in the outpatient setting for right hip pain suggested a closed right hip fracture Primary Care Provider: Brennon Cerrato MD The patient is a 69-year-old male with past medical history including hyperlipidemia, hypertension, neuropathy, lumbar radiculopathy, idiopathic polyneuropathy, testicular neoplasm and 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 He reports that about 31 days ago, he slipped and fell on some black ice, landing on his right hip. He did develop immediate pain in his right hip and groin area, but thought it was just a bruise. He reports using a small letter to help him balance walking recently, and had an x-ray performed in the outpatient setting with suggested closed right hip fracture, at which time he was referred to the ED for assessment. Allergies Allergy/AdvReac Type Severity Reaction Status Date / Time Sulfate Allergy Mild CHILD - Uncoded 05/25/20 22:37 nausea Home Medications Medication Instructions Recorded Confirmed Type ascorbic acid (vitamin C) 500 mg 500 mg PO BID 02/26/19 05/25/20 History tablet cholecalciferol (vitamin D3) 50 2,000 unit PO DAILY 02/26/19 05/25/20 History mcg (2,000 unit) tablet losartan 50 mg tablet 50 mg PO QAM tab 03/05/19 05/25/20 History ezetimibe 10 mg PO DAILY 05/25/20 05/25/20 History losartan 100 mg PO HS 05/25/20 05/25/20 History magnesium 250 mg PO DAILY 05/25/20 05/25/20 History ursodiol 500 mg PO HS 05/25/20 05/25/20 History vitamin E 200 unit PO DAILY 05/25/20 05/25/20 History Past Med/Surg History Medical History (Updated 05/26/20 @ 04:58 by Silvano Brower MD) H/O complications due to general anesthesia Hyperlipidemia Hypertension Neuropathy Surgical History H/O hernia repair History of orchiectomy S/P knee surgery Family History Mother Dementia Father Diabetes Prostate cancer Social History Smoking Status: Never smoker Second Hand Exposure: No; Hx Alcohol Use: No Hx Substance Use: No Communication Ability: Effective Beliefs That Will Affect Care: None Current Living Situation: Alone Other Information That Helps Us Care for You: No Feels Safe at Home: Yes Safety Concerns: Feels Safe At This Time Assistive Devices: Glasses Review of Systems Review of Systems: The patient denies chest pain, palpitations, shortness of breath, dyspnea on exertion, cough, lower extremity swelling, sore throat, fevers, chills, sweats, weight change, fatigue, nausea, vomiting, diarrhea , constipation, abdominal pain, pelvic pain, blood in urine or stool, dysuria, urinary frequency or urgency, lightheadedness, dizziness, headache, memory loss, loss of consciousness, rash, abnormal bruising or bleeding, generalized weakness, numbness or tingling in arms or legs, generalized arthralgias or myalgias, back or neck pain, or night sweats. The review of systems is otherwise negative other than for that already noted above, and at least 10 systems have been reviewed. Physical Exam Physical Exam: The patient is awake, alert and oriented 3, well developed and well nourished, normocephalic and atraumatic, lying in bed and in no acute distress. HEENT--PERRL, EOMI, mucous membranes and oropharynx normal. Neck--supple. No JVD. No bruits. Thyroid normal, trachea midline, no adenopathy. Heart--normal S1 and S2. No murmurs, rubs or gallops. Lungs--clear bilaterally, no respiratory distress, no accessory muscle use. Abdomen--normal bowel sounds and soft. Nontender. Nondistended, no hernias or masses, no organomegaly. Extremities--no cyanosis or clubbing. No edema. Dermatologic--normal skin turgor, normal color, no abnormal lymph nodes, no rash. Neurologic--cranial nerves II through XII grossly intact. Rheumatologic--limited range of motion right hip due to pain, otherwise normal exam Psychiatric--normal affect. Results & Data Results & Data ([facility]) Vital Signs (Past 12 Hours) Vital Signs Temp Pulse Pulse Resp BP BP Pulse Ox 05/25/20 23:24 94 H 16 149/75 H 98 05/25/20 20:39 98.8 F 113 H 18 166/87 H 97 Laboratory Results Laboratory Results WBC 6.75 K/uL (4.8-10.8) 05/25/20 21: RBC 5.20 M/uL (4.7-6.1) 05/25/20 21: Hgb 16.7 g/dL (14.0-18.0) 05/25/20 21:07 Hct 46.5 % (42-52) 05/25/20 21: MCV 89.4 fL (80-100) 05/25/20 21:07 MCH 32.1 pg (25-34) 05/25/20 21: MCHC 35.9 g/dL (32-36) 05/25/20: RDW Std Deviation 41.6 fL (36.4-46.3) 05/25/20: RDW Coeff of Kush 12.8 % (11.5-14.5) 05/25/20 21: Plt Count 130 K/uL (130-400) 05/25/20 21: MPV 9.5 fL (7.4-10.4) 05/25/20: Immature Gran % (Auto) 0.4 % 05/25/20: Neut % (Auto) 65.5 % 05/25/20 21: Lymph % (Auto) 28.3 % 05/25/20: Edwards % (Auto) 5.8 % 03/25/21 21:07 Eos % (Auto) 0.0 % 05/25/20 21:07 Baso % (Auto) 0.0 % 05/25/20 21:07 Neut # (Auto) 4.42 K/uL (1.4-6.5) 05/25/20 21:07 Lymph # (Auto) 1.91 K/uL (1.2-3.4) 05/25/20 21:07 Edwards # (Auto) 0.39 K/uL (0.11-0.59) 05/25/20 21:07 Eos # (Auto) 0.00 K/uL (0-0.5) 05/25/20 21:07 Baso # (Auto) 0.00 K/uL (0-0.2) 05/25/20 21: Immature Gran # (Auto) 0.03 K/uL (0.00-0.02) H 05/25/20 21:07 PT 10.6 Seconds (9.0-12.0) 05/25/20 21: INR 1.0 (0.9-1.1) 05/25/20 21: APTT 23.4 Seconds (21.0-31.0) 05/25/20 21: PTT Ratio 0.9 05/25/20 21: Sodium 144 mmol/L (136-145) 05/25/20 21: Potassium 3.7 mmol/L (3.5-5.1) 05/25/20 21: Chloride 111 mmol/L (98-107) H 05/25/20 21: Carbon Dioxide 30 mmol/L (21-32) 05/25/20 21: Anion Gap 3.0 (3-11) 05/25/20 21: BUN 26 mg/dl (7-18) H 05/25/20 21: Creatinine 1.11 mg/dl (0.6-1.4) 05/25/20 21: Est Cr Clr Drug Dosing Not Reportable 05/25/20 21: Est GFR ( Amer) 78.1 05/25/20 21:07 Est GFR (Non-Af Amer) 67.4 05/25/20 21:07 BUN/Creatinine Ratio 23.7 (10-20) H 05/25/20 21:07 Glucose 139 mg/dl (70-99) H 05/25/20 21:07 Calcium 9.7 mg/dl (8.5-10.1) 05/25/20 21:07 Total Bilirubin 1.2 mg/dl (0.2-1) H 05/25/20 21:07 AST 24 U/L (15-37) 05/25/20 21:07 ALT 36 U/L (12-78) 05/25/20 21:07 Alkaline Phosphatase 74 U/L (45-117) 05/25/20 21:07 Total Protein 6.7 gm/dl (6.4-8.2) 05/25/20 21:07 Albumin 3.8 gm/dl (3.4-5.0) 05/25/20 21:07 Globulin 2.9 gm/dl (2.5-4.0) 05/25/20 21:07 Albumin/Globulin Ratio 1.3 (0.9-2) 05/25/20 21:07 Urine Color Yellow 05/25/20 23:13 Urine Appearance Clear (Clear) 05/25/20 23:13 Urine pH 5.0 (4.5-7.5) 05/25/20 23:13 Ur Specific [place] 1.031 (1.000-1.030) H 05/25/20 23:13 Urine Protein 1+ (Negative) H 05/25/20 23:13 Urine Glucose (UA) Negative (Negative) 05/25/20 23:13 Urine Ketones 1+ (Negative) H 05/25/20 23:13 Urine Blood Negative (Negative) 05/25/20 23:13 Urine Nitrite Negative (Negative) 05/25/20 23:13 Urine Bilirubin Negative (Negative) 05/25/20 23:13 Urine Urobilinogen Negative (Negative) 05/25/20 23:13 Ur Leukocyte Esterase Negative (Negative) 05/25/20 23:13 Urine WBC (Auto) 1-5 /hpf (0-5) 05/25/20 23:13 Urine RBC (Auto) 0-4 /hpf (0-4) 05/25/20 23:13 U Hyaline Cast (Auto) 1-5 /lpf (0-5) 05/25/20 23:13 U Epithel Cells (Auto) 5-10 /lpf (0-5) H 05/25/20 23:13 Urine Bacteria (Auto) Negative (Negative) 05/25/20 23:13 COVID-19 Eval Order CovFluRsv at [facility] 05/25/20 21:38 SARS-CoV-2 (PCR) NEGATIVE (Negative) 05/25/20 21:38 Influenza Type A (PCR) Negative (Neg) 05/25/20 21:38 Influenza Type B (PCR) Negative (Neg) 05/25/20 21:38 RSV (RT-PCR) Negative (Neg) 05/25/20 21:38 Blood Type O Positive 05/25/20 21:07 Antibody Screen NEGATIVE 05/25/20 21:07 Diagnostic Findings [facility], [id number] XRay Report Patient: DENITA DO DAdmit Date: 05/25/20MR#: [id number]: [id number] [place] S170Yclm ID:[id number]: Date: [address] Zip: [place], [place] [address]Jey: 69Location: IDU1Hut: MRoom/Bed:Att Phy: Brennon Cerrato, MDDiagnosis: M25.551Pri Phy: Brennon Cerrato MDService Date: 05/25/20Fa Phy:Interpreting Phy: Trevor Canela MDAdmit Phy: Ordering Phy: Brennon Cerrato MD cc: ~ XR hip RT 2V w pelvis CLINICAL HISTORY: M25.551 RIGHT HIP PAIN STATUS POST TRAUMA COMPARISON: None. DISCUSSION: 3 views reveal a mildly displaced subcapital right hip fracture. This report will be called. IMPRESSION: 1. Mildly displaced subcapital right hip fracture. ACT 112: Negative or not required by law. Electronically signed by: Trevor Canela M.D. 05/25/2020 3:55 PM Dictated: 05/25/201552Transcribed: 05/25/201552 Code Status & VTE Plan Code Status Full code VTE Prophylaxis Plan VTE Prophylaxis will be ordered: Yes PG Care Time/CCT Total # of Minutes Spent Total Time Spent with Patient: Total time spent is greater than 50% in coordination of care (as documented) at patient's floor/unit and/or counseling patient: Coding Level of Care Code 67895 Initial Inpt Care Lvl 2 Diagnoses Fracture of hip, right, closed S72.001A Encounter type: initial encounter Hypertension I10 Hyperlipidemia E78.5 (1) Fracture of hip, right, closed Encounter type: initial encounter Qualified Code(s): S72.001A - Fracture of unspecified part of neck of right femur, initial encounter for closed fracture
[2020-05-26] MEDS ORDERED: LACTATED RINGER'S 1,000 ML IV SCH (00:33)
[2020-05-26] MEDS ORDERED: bisacodyL 10 MG SUPP PR PRN (00:33)
[2020-05-26] MEDS ORDERED: NALOXONE HCL 0.4 MG/1 ML VIAL/CARP IV PRN (00:33)
[2020-05-26] MEDS ORDERED: HYDROmorphone INJ 0.5 MG/0.5 ML SYR IV PRN ×2 (00:33)
[2020-05-26] MEDS ORDERED: ONDANSETRON INJ 2 MG/ML 2 ML VIAL IV PRN ×2 (00:33→14:26)
[2020-05-26] MEDS ORDERED: HYDROCODONE/ACETAMOPHEN 5/325MG TAB PO PRN ×2 (00:33)
[2020-05-26] MEDS ORDERED: ACETAMINOPHEN 325 MG TAB PO PRN (00:33)
[2020-05-26] MEDS ORDERED: MAGNESIUM HYDROXIDE SUSP 30 ML UDC PO PRN (00:33)
[2020-05-26 06:23] LABS: Hematocrit (blood only) 41.5 % (42-52); Hemoglobin 14.5 g/dL (14.0-18.0); Immature Granulocytes # (auto) 0.02 K/uL (0.00-0.02); Immature Granulocytes % (auto) 0.3 %; Lymphocytes # (auto) 2.51 K/uL (1.2-3.4); Mean Corpuscular Hemoglobin 31.5 pg (25-34); Mean Corpuscular Hgb Conc 34.9 g/dL (32-36); Mean Corpuscular Volume 90.2 fL (80-100); Mean Platelet Volume 9.9 fL (7.4-10.4); Monocytes # (auto) 0.67 K/uL (0.11-0.59); Monocytes % (auto) 9.6 %; Neutrophils # (auto) 3.77 K/uL (1.4-6.5); Neutrophils % (auto) 54.1 %; Platelet Count 114 K/uL (130-400); RDW Coefficient of Variation 12.7 % (11.5-14.5); RDW Standard Deviation 41.5 fL (36.4-46.3); White Blood Count 6.97 K/uL (4.8-10.8)
--- NOTE | 2020-05-26 06:52 | XRay Report ---
XR chest 1V portable CLINICAL HISTORY: Preoperative chest. Hip fracture TRAUMA COMPARISON STUDY: 10/14/2017 FINDINGS: The cardiac and mediastinal contours are normal. There is no evidence of focal pulmonary co nsolidation. There is no evidence of failure. No pleural effusions are visualized.[ IMPRESSION: No active disease in the chest. ACT 112: Negative or not required by law. Electronically signed by: Trevor Canela M.D. 05/26/2020 6:51 AM
[2020-05-26 06:55] LABS: Albumin Level 3.1 gm/dl (3.4-5.0); BUN Creatinine Ratio 31.3 (10-20); Calcium 8.4 mg/dl (8.5-10.1); Creatinine Clr Calc Pharmacy 80.7 ml/min; Est GFR (Non-African American) 84.6; Phosphorus 2.8 mg/dl (2.5-4.9); Potassium 3.6 mmol/L (3.5-5.1)
[2020-05-26] MEDS ORDERED: LOSARTAN POTASSIUM 50 MG TAB PO SCH ×2 (09:00→21:00)
[2020-05-26] MEDS ORDERED: POTASSIUM CHLORIDE 20 MEQ in D5W AND 1/2NSS 1,000 ML IV SCH (09:30)
[2020-05-26 09:46] LABS: Alanine Aminotransferase 30 U/L (12-78); Albumin Level 3.1 gm/dl (3.4-5.0); Alkaline Phosphatase 61 U/L (45-117); Aspartate Aminotransferase 22 U/L (15-37); Bilirubin Direct < 0.1 mg/dl (0-0.2); Bilirubin,Total 0.9 mg/dl (0.2-1); Total Protein 5.5 gm/dl (6.4-8.2)
--- NOTE | 2020-05-26 12:34 | Orthopedic Consultation ---
Date of Service May 26, 2020 Assessment & Plan (1) Fracture of hip, right, closed: I discussed diagnosis and treatment options with him at bedside. My recommendation was to proceed with a right total hip arthroplasty. He understands the risk, benefits, and alternatives to procedure and is like to proceed. Questions are answered at bedside and consents were signed. The decision was made for surgery. He is currently n.p.o. History of Present Illness Reason for Consultation: Displaced right femoral neck fracture. Requesting Physician: . Attending Physician: Miguel Wilkinson MD Guevara is a pleasant 69-year-old male who fell hard on the ice about a month ago. He has been having right hip pain since. Is gotten worse recently and he went to his primary care physician. X-rays were ordered and they show a displaced right femoral neck fracture. He was admitted to the hospitalist service last night. Orthopedics was consulted to evaluate and treat.. Allergies Allergy/AdvReac Type Severity Reaction Status Date / Time Sulfate Allergy Mild CHILD - Uncoded 05/25/20 22:37 nausea Home Medications Medication Instructions Recorded Confirmed Type ascorbic acid (vitamin C) 500 mg 500 mg PO BID 02/26/19 05/25/20 History tablet cholecalciferol (vitamin D3) 50 2,000 unit PO DAILY 02/26/19 05/25/20 History mcg (2,000 unit) tablet losartan 50 mg tablet 50 mg PO QAM tab 03/05/19 05/25/20 History ezetimibe 10 mg PO DAILY 05/25/20 05/25/20 History losartan 100 mg PO HS 05/25/20 05/25/20 History magnesium 250 mg PO DAILY 05/25/20 05/25/20 History ursodiol 500 mg PO HS 05/25/20 05/25/20 History vitamin E 200 unit PO DAILY 05/25/20 05/25/20 History Past Med/Surg History Medical History H/O complications due to general anesthesia Hyperlipidemia Hypertension Neuropathy Surgical History H/O hernia repair History of orchiectomy S/P knee surgery Family History Mother Dementia Father Diabetes Prostate cancer Social History Smoking Status: Never smoker Second Hand Exposure: No; Hx Alcohol Use: No Hx Substance Use: No Communication Ability: Effective Beliefs That Will Affect Care: None Current Living Situation: Alone Other Information That Helps Us Care for You: No Feels Safe at Home: Yes Safety Concerns: Feels Safe At This Time Assistive Devices: Glasses Review of Systems All systems reviewed & are unremarkable except as noted in HPI & below. Physical Exam On physical examination of his right hip, there is a little bit of ecchymosis. His little bit of swelling. He has little bit of pain with logroll of his right hip but not too much. His right leg is little bit shorter than the left.. Constitutional WD/WN, vitals as above Eyes PERRL, conjunctivae normal, anicteric sclerae ENMT external ear and nose normal, oropharynx normal Neck trachea midline, no thyromegaly Respiratory normal respiratory effort Cardiovascular RRR, no murmur, no edema Gastrointestinal (Abdomen) normal bowel sounds, soft, nontender, no hepatosplenomegaly Psychiatric A+Ox3, euthymic affect Results & Data Results & Data Laboratory Results . Diagnostic Findings X-rays of the right hip and pelvis show a displaced right femoral neck fracture with some mild osteoarthritis. PG Care Time/CCT Total # of Minutes Spent Total Time Spent with Patient: Total time spent is greater than 50% in coordination of care (as documented) at patient's floor/unit and/or counseling patient: Coding Level of Care Code 17088 Inpt Consult Level 4 (57 - DECISION FOR SURGERY) Diagnoses Fracture of hip, right, closed S72.001A Encounter type: initial encounter (1) Fracture of hip, right, closed Encounter type: initial encounter Qualified Code(s): S72.001A - Fracture of unspecified part of neck of right femur, initial encounter for closed fracture
[2020-05-26] MEDS ORDERED: LIDOCAINE HCL 2% 2 ML VIAL/AMP(20MG/ML) INFIL ONE (13:30)
[2020-05-26] MEDS ORDERED: MIDAZOLAM HCL 1 MG/ML 2ML VIAL ONE ×2 (13:30)
[2020-05-26] MEDS ORDERED: PROPOFOL IV EMULSION 10 MG/ML 20 ML VIAL IV ONE ×2 (13:30→16:37)
--- NOTE | 2020-05-26 13:35 | Anesthesiology Consultation ---
Date of Service May 26, 2020 Assessment & Plan (1) Thrombocytopenia: Chart Review Chart Review: Acceptable Risk for Surgery History Surgery Operation Date: 05/26/20 07:00 Proposed Procedures p Right Anterior Total Hip Arthroplasty - Herve Limon DO Height/Weight Height: 5 ft 11 in Weight: 79.917 kg Allergies Allergy/AdvReac Type Severity Reaction Status Date / Time Sulfate Allergy Mild CHILD - Uncoded 05/25/20 22:37 nausea Medications Home Medications Medication Instructions Recorded Confirmed Last Taken ascorbic acid (vitamin C) 500 mg 500 mg PO BID 02/26/19 05/25/20 05/25/20 tablet cholecalciferol (vitamin D3) 50 2,000 unit PO DAILY 02/26/19 05/25/20 05/25/20 mcg (2,000 unit) tablet losartan 50 mg tablet 50 mg PO QAM tab 03/05/19 05/25/20 05/25/20 ezetimibe 10 mg PO DAILY 05/25/20 05/25/20 05/25/20 losartan 100 mg PO HS 05/25/20 05/25/20 05/25/20 magnesium 250 mg PO DAILY 05/25/20 05/25/20 05/25/20 ursodiol 500 mg PO HS 05/25/20 05/25/20 05/25/20 vitamin E 200 unit PO DAILY 05/25/20 05/25/20 05/25/20 Active Medications Generic Name Dose Route Start Last Admin Trade Name Freq PRN Reason Stop Dose Admin Potassium Chloride 20 meq/ 1,010 mls @ 80 mls/hr 05/26/20 09:30 05/26/20 09:35 Dextrose/Sodium Chloride IV 06/25/20 09:29 80 mls/hr .[id number] LEORA Administration Losartan Potassium 50 mg 05/26/20 09:00 05/26/20 08:13 Losartan Potassium 50 Mg Tab PO 06/25/20 08:59 50 mg BID LEORA Administration NPO Date Last Intake of Fluids: 05/25/20 Time Last Intake of Fluids: 00:00 Past Medical History Medical History (Updated 05/26/20 @ 13:35 by Ezequiel Hankins MD) H/O complications due to general anesthesia Hyperlipidemia Hypertension Neuropathy Thrombocytopenia Past Family History Family History Mother Dementia Father Diabetes Prostate cancer Past Surgical History Surgical History H/O hernia repair History of orchiectomy S/P knee surgery Social History Smoking Status: Never smoker Hx Alcohol Use: No Hx Substance Use: No Physical Exam Vital Signs Last Vital Signs Temp 36.9 C 05/26/20 07:17 Pulse 70 05/26/20 07:17 Resp 16 05/26/20 07:17 BP 158/94 H 05/26/20 10:50 Pulse Ox 97 05/26/20 07:17 Testing Laboratory Results 05/26/20 05:55 05/26/20 05:55 PT 10.6 Seconds (9.0-12.0) 05/25/20 21:07 INR 1.0 (0.9-1.1) 05/25/20 21:07 APTT 23.4 Seconds (21.0-31.0) 05/25/20 21:07 Urine Color Yellow 05/25/20 23:13 Urine Appearance Clear (Clear) 05/25/20 23:13 Urine pH 5.0 (4.5-7.5) 05/25/20 23:13 Ur Specific [place] 1.031 (1.000-1.030) H 05/25/20 23:13 Urine Protein 1+ (Negative) H 05/25/20 23:13 Urine Glucose (UA) Negative (Negative) 05/25/20 23:13 Urine Ketones 1+ (Negative) H 05/25/20 23:13 Urine Nitrite Negative (Negative) 05/25/20 23:13 Ur Leukocyte Esterase Negative (Negative) 05/25/20 23:13 Urine WBC (Auto) 1-5 /hpf (0-5) 05/25/20 23:13 Urine RBC (Auto) 0-4 /hpf (0-4) 05/25/20 23:13 U Hyaline Cast (Auto) 1-5 /lpf (0-5) 05/25/20 23:13 U Epithel Cells (Auto) 5-10 /lpf (0-5) H 05/25/20 23:13 Urine Bacteria (Auto) Negative (Negative) 05/25/20 23:13 Blood Type O Positive 05/25/20 21:07 Antibody Screen NEGATIVE 05/25/20 21:07 Electrocardiogram Date: 05/25/20 Findings: + NSR @ (95) Chest X-Ray Date: 05/25/20 Findings: + NAD
--- NOTE | 2020-05-26 14:04 | History & Physical Bridge Note ---
Date of Service May 26, 2020 History & Physical Bridge Note I have examined the patient, reviewed the History & Physical and in the interval since the performance of the History & Physical I have noted the following changes of clinical significance: no changes noted
[2020-05-26] MEDS ORDERED: hydrALAZINE HCL 20 MG/ML VIAL IV STA (14:07)
--- NOTE | 2020-05-26 14:17 | Hospitalist Progress Note ---
Date of Service May 26, 2020 Assessment & Plan (1) Fracture of hip, right, closed: NPO for intervention planned Ortho consulted -- plans for add on vs in between cases today Discussed prior anesthesia with donor specialist regarding history of adverse reaction reported to morphine LR @80cc/hr changed to D5 1/2NS @ 80cc/hr +20k for some hypernatremia Pain control: Acetaminophen 650 mg p.o. every 6 hours as needed mild pain or fever Udall 5/325: 1 p.o. every 6 hours as needed moderate pain. 2 p.o. every 6 hours as needed severe pain Dilaudid 0.25 mg IV every 3 hours as needed moderate pain Dilaudid 0.5 mg IV every 3 hours as needed severe pain Zofran 4 mg IV every 6 hours as needed Geriatric hip fracture protocol order set CXR no acute process. EKG unchanged from prior but does appear some pulm pattern. No shortness of breath/BASIL. Sat 97% on RA Hydralazine prn for elevated BP (2) Hypertension: Continue losartan with hold parameters -- he actually takes 50mg QAM and 100mg QHS --> changed in system. Hold AM if BP drops post surgery until Cr evaluated Hydralzine prn for BP systolic >90 Continue to monitor (3) Hyperlipidemia: Continue Zetia Hypernatremia Na 147 this am -- IVF changes as above BMP in AM Vit D deficiency -Suspected given fall and on supplementation at home Will add level to AM labs and increase if needed Dispo: NPO for hip replacement today (4) Vitamin D deficiency: Admission and Anticipated Discharge Date Admission Date: May 25, 2020 Subjective Patient evaluated this morning. No pain. Thought initially was a muscle strain but persisted. Multiple trips to [facility] and utilized parking next to cart rack and then using cart to shop and then one at home to get groceries to his apartment with a grocery cart there as well. Utilizing a cane as well as a step later for ambulation at home until seen by PCP and imaging was performed. Seen by ortho this morning and planning on fitting him into the schedule today. Typically quite healthy javon. No fevers, chills, chest pain, shortness of breath, abdominal pain, nausea, vomiting or dysuria. No calf swelling or tenderness after fall. Was up at side of bed doing work on laptop this morning without discomfort. Prior surgery 2016 with bad reaction to anesthesia he believes it to be from morphine but then with hernia repair with Dr. Friedman in 2018 did not have any issues and would like anesthesia notified to use the same concoction if possible. Questions/concerns addressed at this time -- he is hopeful option for therapy at home with transition to OPPT if possible after eval by therapy following intervention. Review of Systems Review of Systems: All systems reviewed & are unremarkable except as noted in HPI & below Physical Exam Physical Exam: The patient is awake, alert and oriented 3, well developed and well nourished, normocephalic and atraumatic, lying in bed and in no acute distress. HEENT--PERRL, EOMI, mucous membranes and oropharynx normal. Neck--supple. No JVD. No bruits. Thyroid normal, trachea midline, no adenopathy. Heart--normal S1 and S2. No murmurs, rubs or gallops. Calves non-tender to palpation. Pulses palpable bilaterally Lungs--clear bilaterally, no respiratory distress, no accessory muscle use. Abdomen--normal bowel sounds and soft. Nontender. Nondistended, no hernias or masses, no organomegaly. Extremities--no cyanosis or clubbing. No edema. Dermatologic--normal skin turgor, normal color, no abnormal lymph nodes, no rash. Neurologic--cranial nerves II through XII grossly intact. Rheumatologic--limited range of motion right hip due to pain, otherwise normal exam Psychiatric--normal affect. Results & Data Results & Data ([facility]) Vital Signs (Past 12 Hours) Vital Signs Temp Pulse Resp BP Pulse Ox 05/26/20 10:50 158/94 H 05/26/20 07:17 36.9 C 70 16 158/75 H 97 Laboratory Results 05/26/20 05/26/20 05/26/20 Range/Units 05:55 05:55 05:55 WBC 6.97 (4.8-10.8) K/uL RBC 4.60 L (4.7-6.1) M/uL Hgb 14.5 (14.0-18.0) g/dL Hct 41.5 L (42-52) % MCV 90.2 (80-100) fL MCH 31.5 (25-34) pg MCHC 34.9 (32-36) g/dL RDW Std Deviation 41.5 (36.4-46.3) fL RDW Coeff of Ksuh 12.7 (11.5-14.5) % Plt Count 114 L (130-400) K/uL MPV 9.9 (7.4-10.4) fL Immature Gran % (Auto) 0.3 % Neut % (Auto) 54.1 % Lymph % (Auto) 36.0 % Woodward % (Auto) 9.6 % Eos % (Auto) 0.0 % Baso % (Auto) 0.0 % Neut # (Auto) 3.77 (1.4-6.5) K/uL Lymph # (Auto) 2.51 (1.2-3.4) K/uL Woodward # (Auto) 0.67 H (0.11-0.59) K/uL Eos # (Auto) 0.00 (0-0.5) K/uL Baso # (Auto) 0.00 (0-0.2) K/uL Immature Gran # (Auto) 0.02 (0.00-0.02) K/uL PT (9.0-12.0) Seconds INR (0.9-1.1) APTT (21.0-31.0) Seconds PTT Ratio Sodium 147 H (136-145) mmol/L Potassium 3.6 (3.5-5.1) mmol/L Chloride 115 H (98-107) mmol/L Carbon Dioxide 30 (21-32) mmol/L Anion Gap 2.0 L (3-11) BUN 29 H (7-18) mg/dl Creatinine 0.92 (0.6-1.4) mg/dl Est Cr Clr Drug Dosing 80.7 Est GFR ( Amer) 98.0 Est GFR (Non-Af Amer) 84.6 BUN/Creatinine Ratio 31.3 H (10-20) Glucose 98 (70-99) mg/dl Calcium 8.4 L (8.5-10.1) mg/dl Phosphorus 2.8 (2.5-4.9) mg/dl Total Bilirubin 0.9 (0.2-1) mg/dl Direct Bilirubin < 0.1 (0-0.2) mg/dl AST 22 (15-37) U/L ALT 30 (12-78) U/L Alkaline Phosphatase 61 (45-117) U/L Total Protein 5.5 L (6.4-8.2) gm/dl Albumin 3.1 L 3.1 L (3.4-5.0) gm/dl Globulin (2.5-4.0) gm/dl Albumin/Globulin Ratio (0.9-2) Urine Color Urine Appearance (Clear) Urine pH (4.5-7.5) Ur Specific [place] (1.000-1.030) Urine Protein (Negative) Urine Glucose (UA) (Negative) Urine Ketones (Negative) Urine Blood (Negative) Urine Nitrite (Negative) Urine Bilirubin (Negative) Urine Urobilinogen (Negative) Ur Leukocyte Esterase (Negative) Urine WBC (Auto) (0-5) /hpf Urine RBC (Auto) (0-4) /hpf U Hyaline Cast (Auto) (0-5) /lpf U Epithel Cells (Auto) (0-5) /lpf Urine Bacteria (Auto) (Negative) COVID-19 Eval Order SARS-CoV-2 (PCR) (Negative) Influenza Type A (PCR) (Neg) Influenza Type B (PCR) (Neg) RSV (RT-PCR) (Neg) Blood Type Antibody Screen 05/25/20 05/25/20 05/25/20 Range/Units 23:13 21:38 21:38 WBC (4.8-10.8) K/uL RBC (4.7-6.1) M/uL Hgb (14.0-18.0) g/dL Hct (42-52) % MCV (80-100) fL MCH (25-34) pg MCHC (32-36) g/dL RDW Std Deviation (36.4-46.3) fL RDW Coeff of Kush (11.5-14.5) % Plt Count (130-400) K/uL MPV (7.4-10.4) fL Immature Gran % (Auto) % Neut % (Auto) % Lymph % (Auto) % Woodward % (Auto) % Eos % (Auto) % Baso % (Auto) % Neut # (Auto) (1.4-6.5) K/uL Lymph # (Auto) (1.2-3.4) K/uL Woodward # (Auto) (0.11-0.59) K/uL Eos # (Auto) (0-0.5) K/uL Baso # (Auto) (0-0.2) K/uL Immature Gran # (Auto) (0.00-0.02) K/uL PT (9.0-12.0) Seconds INR (0.9-1.1) APTT (21.0-31.0) Seconds PTT Ratio Sodium (136-145) mmol/L Potassium (3.5-5.1) mmol/L Chloride (98-107) mmol/L Carbon Dioxide (21-32) mmol/L Anion Gap (3-11) BUN (7-18) mg/dl Creatinine (0.6-1.4) mg/dl Est Cr Clr Drug Dosing Est GFR ( Amer) Est GFR (Non-Af Amer) BUN/Creatinine Ratio (10-20) Glucose (70-99) mg/dl Calcium (8.5-10.1) mg/dl Phosphorus (2.5-4.9) mg/dl Total Bilirubin (0.2-1) mg/dl Direct Bilirubin (0-0.2) mg/dl AST (15-37) U/L ALT (12-78) U/L Alkaline Phosphatase (45-117) U/L Total Protein (6.4-8.2) gm/dl Albumin (3.4-5.0) gm/dl Globulin (2.5-4.0) gm/dl Albumin/Globulin Ratio (0.9-2) Urine Color Yellow Urine Appearance Clear (Clear) Urine pH 5.0 (4.5-7.5) Ur Specific [place] 1.031 H (1.000-1.030) Urine Protein 1+ H (Negative) Urine Glucose (UA) Negative (Negative) Urine Ketones 1+ H (Negative) Urine Blood Negative (Negative) Urine Nitrite Negative (Negative) Urine Bilirubin Negative (Negative) Urine Urobilinogen Negative (Negative) Ur Leukocyte Esterase Negative (Negative) Urine WBC (Auto) 1-5 (0-5) /hpf Urine RBC (Auto) 0-4 (0-4) /hpf U Hyaline Cast (Auto) 1-5 (0-5) /lpf U Epithel Cells (Auto) 5-10 H (0-5) /lpf Urine Bacteria (Auto) Negative (Negative) COVID-19 Eval Order CovFluRsv at [facility] SARS-CoV-2 (PCR) NEGATIVE (Negative) Influenza Type A (PCR) Negative (Neg) Influenza Type B (PCR) Negative (Neg) RSV (RT-PCR) Negative (Neg) Blood Type Antibody Screen 05/25/20 05/25/20 05/25/20 Range/Units 21:07 21:07 21:07 WBC 6.75 (4.8-10.8) K/uL RBC 5.20 (4.7-6.1) M/uL Hgb 16.7 (14.0-18.0) g/dL Hct 46.5 (42-52) % MCV 89.4 (80-100) fL MCH 32.1 (25-34) pg MCHC 35.9 (32-36) g/dL RDW Std Deviation 41.6 (36.4-46.3) fL RDW Coeff of Kush 12.8 (11.5-14.5) % Plt Count 130 (130-400) K/uL MPV 9.5 (7.4-10.4) fL Immature Gran % (Auto) 0.4 % Neut % (Auto) 65.5 % Lymph % (Auto) 28.3 % Woodward % (Auto) 5.8 % Eos % (Auto) 0.0 % Baso % (Auto) 0.0 % Neut # (Auto) 4.42 (1.4-6.5) K/uL Lymph # (Auto) 1.91 (1.2-3.4) K/uL Woodward # (Auto) 0.39 (0.11-0.59) K/uL Eos # (Auto) 0.00 (0-0.5) K/uL Baso # (Auto) 0.00 (0-0.2) K/uL Immature Gran # (Auto) 0.03 H (0.00-0.02) K/uL PT 10.6 (9.0-12.0) Seconds INR 1.0 (0.9-1.1) APTT 23.4 (21.0-31.0) Seconds PTT Ratio 0.9 Sodium (136-145) mmol/L Potassium (3.5-5.1) mmol/L Chloride (98-107) mmol/L Carbon Dioxide (21-32) mmol/L Anion Gap (3-11) BUN (7-18) mg/dl Creatinine (0.6-1.4) mg/dl Est Cr Clr Drug Dosing Est GFR ( Amer) Est GFR (Non-Af Amer) BUN/Creatinine Ratio (10-20) Glucose (70-99) mg/dl Calcium (8.5-10.1) mg/dl Phosphorus (2.5-4.9) mg/dl Total Bilirubin (0.2-1) mg/dl Direct Bilirubin (0-0.2) mg/dl AST (15-37) U/L ALT (12-78) U/L Alkaline Phosphatase (45-117) U/L Total Protein (6.4-8.2) gm/dl Albumin (3.4-5.0) gm/dl Globulin (2.5-4.0) gm/dl Albumin/Globulin Ratio (0.9-2) Urine Color Urine Appearance (Clear) Urine pH (4.5-7.5) Ur Specific [place] (1.000-1.030) Urine Protein (Negative) Urine Glucose (UA) (Negative) Urine Ketones (Negative) Urine Blood (Negative) Urine Nitrite (Negative) Urine Bilirubin (Negative) Urine Urobilinogen (Negative) Ur Leukocyte Esterase (Negative) Urine WBC (Auto) (0-5) /hpf Urine RBC (Auto) (0-4) /hpf U Hyaline Cast (Auto) (0-5) /lpf U Epithel Cells (Auto) (0-5) /lpf Urine Bacteria (Auto) (Negative) COVID-19 Eval Order SARS-CoV-2 (PCR) (Negative) Influenza Type A (PCR) (Neg) Influenza Type B (PCR) (Neg) RSV (RT-PCR) (Neg) Blood Type O Positive Antibody Screen NEGATIVE 05/25/20 Range/Units 21:07 WBC (4.8-10.8) K/uL RBC (4.7-6.1) M/uL Hgb (14.0-18.0) g/dL Hct (42-52) % MCV (80-100) fL MCH (25-34) pg MCHC (32-36) g/dL RDW Std Deviation (36.4-46.3) fL RDW Coeff of Kush (11.5-14.5) % Plt Count (130-400) K/uL MPV (7.4-10.4) fL Immature Gran % (Auto) % Neut % (Auto) % Lymph % (Auto) % Woodward % (Auto) % Eos % (Auto) % Baso % (Auto) % Neut # (Auto) (1.4-6.5) K/uL Lymph # (Auto) (1.2-3.4) K/uL Woodward # (Auto) (0.11-0.59) K/uL Eos # (Auto) (0-0.5) K/uL Baso # (Auto) (0-0.2) K/uL Immature Gran # (Auto) (0.00-0.02) K/uL PT (9.0-12.0) Seconds INR (0.9-1.1) APTT (21.0-31.0) Seconds PTT Ratio Sodium 144 (136-145) mmol/L Potassium 3.7 (3.5-5.1) mmol/L Chloride 111 H (98-107) mmol/L Carbon Dioxide 30 (21-32) mmol/L Anion Gap 3.0 (3-11) BUN 26 H (7-18) mg/dl Creatinine 1.11 (0.6-1.4) mg/dl Est Cr Clr Drug Dosing Not Reportable Est GFR ( Amer) 78.1 Est GFR (Non-Af Amer) 67.4 BUN/Creatinine Ratio 23.7 H (10-20) Glucose 139 H (70-99) mg/dl Calcium 9.7 (8.5-10.1) mg/dl Phosphorus (2.5-4.9) mg/dl Total Bilirubin 1.2 H (0.2-1) mg/dl Direct Bilirubin (0-0.2) mg/dl AST 24 (15-37) U/L ALT 36 (12-78) U/L Alkaline Phosphatase 74 (45-117) U/L Total Protein 6.7 (6.4-8.2) gm/dl Albumin 3.8 (3.4-5.0) gm/dl Globulin 2.9 (2.5-4.0) gm/dl Albumin/Globulin Ratio 1.3 (0.9-2) Urine Color Urine Appearance (Clear) Urine pH (4.5-7.5) Ur Specific [place] (1.000-1.030) Urine Protein (Negative) Urine Glucose (UA) (Negative) Urine Ketones (Negative) Urine Blood (Negative) Urine Nitrite (Negative) Urine Bilirubin (Negative) Urine Urobilinogen (Negative) Ur Leukocyte Esterase (Negative) Urine WBC (Auto) (0-5) /hpf Urine RBC (Auto) (0-4) /hpf U Hyaline Cast (Auto) (0-5) /lpf U Epithel Cells (Auto) (0-5) /lpf Urine Bacteria (Auto) (Negative) COVID-19 Eval Order SARS-CoV-2 (PCR) (Negative) Influenza Type A (PCR) (Neg) Influenza Type B (PCR) (Neg) RSV (RT-PCR) (Neg) Blood Type Antibody Screen Diagnostic Findings XR chest 1V portable CLINICAL HISTORY: Preoperative chest. Hip fracture TRAUMA COMPARISON STUDY: 10/14/2017 FINDINGS: The cardiac and mediastinal contours are normal. There is no evidence of focal pulmonary consolidation. There is no evidence of failure. No pleural effusions are visualized.[ IMPRESSION: No active disease in the chest. PG Care Time/CCT Total # of Minutes Spent Total Time Spent with Patient: Total time spent is greater than 50% in coordination of care (as documented) at patient's floor/unit and/or counseling patient: Coding Level of Care Code 17684 Subseq Hosp Care Lvl 3 Diagnoses Fracture of hip, right, closed S72.001A Encounter type: initial encounter Hypertension I10 Hyperlipidemia E78.5 Vitamin D deficiency E55.9 (1) Fracture of hip, right, closed Encounter type: initial encounter Qualified Code(s): S72.001A - Fracture of unspecified part of neck of right femur, initial encounter for closed fracture
[2020-05-26] MEDS ORDERED: KETOROLAC 30 MG/ML VIAL IV PRN (14:26)
[2020-05-26] MEDS ORDERED: ATROPINE SULFATE 0.1 MG/ML 10ML SYR IV PRN (14:26)
[2020-05-26] MEDS ORDERED: HYDROmorphone INJ 1 MG/ML SYRINGE IV PRN (14:26)
[2020-05-26] MEDS ORDERED: ePHEDrine sulfate 50 MG/ML AMP IV PRN (14:27)
[2020-05-26] MEDS ORDERED: ceFAZolin 2000MG 2,000 MG/15 ML SYR IV ONE (14:28)
[2020-05-26] MEDS ORDERED: fentaNYL citrate 100 MCG/2 ML VIAL ONE (14:58)
[2020-05-26] MEDS ORDERED: BUPIVACAINE 0.5 % 5 MG/1 ML PF 10ML VIAL ONE (14:59)
[2020-05-26] MEDS ORDERED: ROPIVACAINE 0.5% HCL/PF 150 MG, BUPIVACAINE 0.75% MPF 20 ML, EPINEPHrine 30MG/30ML (OR ... INFIL SCH (15:00)
[2020-05-26] MEDS ORDERED: TRANEXAMIC ACID / 0.7% NACL 1000MG/100ML BAG IV ONE (15:03)
[2020-05-26] MEDS ORDERED: TRANEXAMIC ACID / 0.7% NACL 1,000 MG/100 ML BAG IV ONE ×2 (15:04→15:06)
--- NOTE | 2020-05-26 15:54 | Electrocardiogram Report ---
Test Reason : Blood Pressure : / mmHG Vent. Rate : 095 BPM Atrial Rate : 095 BPM P-R Int : 162 ms QRS Dur : 092 ms QT Int : 330 ms P-R-T Axes : 068 093 070 degrees QTc Int : 414 ms Normal sinus rhythm with sinus arrhythmia Rightward axis Abnormal ECG When compared with ECG of 14-OCT-2017 04:40, No significant change was found Confirmed by Warner Harper [id number]) on 05/26/2020 3:54:13 PM Referred By: Brennon Cerrato Confirmed By:Todd Harper
--- NOTE | 2020-05-26 16:34 | Operative Report ---
PG Post Operative Report Pre & Post Diagnosis Operation Date: 05/26/20 07:00 Pre-Op Diagnosis: Fracture of hip, right, closed Post-Op Diagnosis: Fracture of hip, right, closed I identified the patient and participated in the time-out.: Yes Procedure Operation Date: 05/26/20 07:00 Actual Procedures p Right Anterior Total Hip Arthroplasty, Uncemented(Right) - Herve Limon DO Surgeon Herve Limon DO Bag Cutter Herve Hua PAC Estimated Blood Loss 300 Findings Consistent with Post-Op Diagnosis Specimens Right femoral head Complications none Disposition Disposition: Recovery Room Indications Guevara is a pleasant 69-year-old male who fell and fractured his right hip about a month ago. He has been walking on his right hip for the past month. His symptoms got worse so he went to his primary care physician's office and x-rays showed a displaced femoral neck fracture. He was admitted to the hospital. After consultations with orthopedics at bedside, he elected proceed with a right anterior total hip arthroplasty. Description of Procedure Implants used I used a Biomet Taperloc total hip arthroplasty system with a size 11 high offset Taperloc stem, a 56 mm G7 cup with a 25mm screw, an E1 polyethylene liner, a 40 mm ceramic head with a -3 neck. Guevara arrived at the hospital for the above procedure. He was seen in the preoperative holding area and the operative extremity was identified and signed. He was given a spinal anesthetic, a preoperative antibiotic, and TXA. He was then taken back to the operating room and laid on the table in the supine position. He was given basic sedation. The operative leg was secured to a Puristst leg positioner. The hip was then prepped and draped in sterile fashion. A timeout was done and the patient and the operative extremity was properly identified. An anterior approach was used. Dissection was taken down through the fascia and the tensor muscle belly was retracted laterally and the rectus was retracted medially. The circumflex vessels were identified and ligated. The capsule was then incised and tagged for later repair. The femoral neck was then cut and the femoral head was removed. The acetabulum was exposed. Time was spent doing a complete circumferential labral release. Sequential reaming of the acetabulum up to a size 55 reamer was done. Final reamings were done under fluoroscopy to ensure appropriate version. A Biomet 56 mm G7 cup was then impacted into place. A single 25 mm screw was placed. The E1 polyethylene liner was then snapped into place. Surrounding soft tissues were then injected with 100 cc of an orthopedic pain control cocktail. The proximal femur was then exposed. Sequential broaching up to a size 11 broach was done. Off that broach a size 40 head with a -3 neck was trialed. The hip was reduced and fluoroscopic images showed anatomic alignment of the implants in acceptable length. The broach was removed. The final size 11 Taperloc stem was then impacted into place. A ceramic 40 mm head with a -3 neck was then impacted onto the stem and the hip was reduced. Final fluoroscopic images showed anatomic alignment of the hip. The capsule was then closed with #1 Vicryl suture. A dilute betadyne lavage was then done for 3 minutes. The joint was then irrigated with normal saline solution. The fascia was closed with #1 PDS suture. Skin was closed with 2-0 Vicryl, carola, and a Silverlon dressing. He was then transferred to a hospital bed and taken to the post anesthesia care unit in stable condition. He tolerated the procedure well. Herve Hua PA-C, was present for the entire procedure. He was critical for patient positioning, prepping, draping, retraction exposure, wound closure and application of sterile dressing. I attest to the content of the Intraoperative Record and any orders documented therein. Any exceptions are noted below.
--- NOTE | 2020-05-26 16:49 | Fluoroscopy Report ---
FL hip RT 1V HISTORY: 69 years-old Male RIGHT ANTERIOR HIP FX TO ARTHROPLASTY right hip total joint arthroplasty COMPARISON: Pelvis and hip radiographs 05/25/2020 TECHNIQUE: 5 spot fluoroscopic images of the right hip were obtained utilizing 22.4 seconds fluorosco py time FINDINGS: Initial images demonstrate bilateral hip osteoarthritis. Right hip total joint arthroplasty demonstra dang satisfactory alignment without acute fracture. Expected postoperative soft tissue swelling with d eep tissue air. No unexpected opaque foreign body. IMPRESSION: Right hip total joint arthroplasty with expected postoperative changes. ACT 112: Negative or not required by law. The above report was generated using voice recognition software. It may contain grammatical, syntax o r spelling errors. Electronically signed by: Vernon Finney M.D. 05/26/2020 4:48 PM
--- NOTE | 2020-05-26 17:15 | Anesthesiology Progress Note ---
Date of Service May 26, 2020 Anesthesia Post Procedure Vital Signs Vital Signs: Temp Pulse Pulse Pulse Resp BP BP 05/26/20 17:10 85 16 05/26/20 17:00 81 15 05/26/20 16:54 36.2 C L 90 16 05/26/20 14:03 36.6 C 80 15 175/83 H 05/26/20 10:50 158/94 H 05/26/20 07:17 36.9 C 70 16 158/75 H 05/26/20 00:35 37.4 C 87 16 167/72 H 05/26/20 00:24 90 17 150/78 H 05/25/20 23:24 94 H 16 149/75 H 05/25/20 20:39 37.1 C 113 H 18 166/87 H BP Pulse Ox 05/26/20 17:10 149/78 H 99 05/26/20 17:00 140/71 97 05/26/20 16:54 136/69 95 05/26/20 14:03 96 05/26/20 10:50 05/26/20 07:17 97 05/26/20 00:35 97 05/26/20 00:24 98 05/25/20 23:24 98 05/25/20 20:39 97 Pain Intensity Right Hip: Pain Intensity: 1 Transfer of Care Handoff Completed per policy Notes Mental Status: alert / awake / arousable Patient Amnestic to Procedure: Yes Nausea / Vomiting: adequately controlled Pain: adequately controlled Airway Patency, RR, SpO2: stable & adequate BP & HR: stable & adequate Hydration State: stable & adequate Neuraxial Anesthesia: was administered and sensory block is resolving Anesthetic Complications: no major complications apparent and Pt Satisfied with anesthetic care
--- NOTE | 2020-05-26 17:29 | XRay Report ---
XR hip RT min 2V HISTORY: 69 years-old Male Post-Operative implant position right hip total joint arthroplasty COMPARISON: Pelvis and hip radiographs 05/25/2020 TECHNIQUE: 2 views the right hip FINDINGS: Right hip total joint arthroplasty demonstrates satisfactory alignment. Expected postoperative soft t issue swelling and deep tissue air with associated skin carola. No acute fracture or unexpected opaq ue foreign body. IMPRESSION: Right hip total joint arthroplasty with expected postoperative changes. ACT 112: Negative or not required by law. The above report was generated using voice recognition software. It may contain grammatical, syntax o r spelling errors. Electronically signed by: Vernon Finney M.D. 05/26/2020 5:28 PM
[2020-05-26] MEDS: ursodioL 300 MG CAP PO SCH (20:41)
[2020-05-26] MEDS: ASPIRIN 81 MG ECTAB PO SCH (20:41)
[2020-05-26] MEDS ORDERED: DOCUSATE SODIUM/SENNA 50/8.6MG TAB PO SCH (21:00)
[2020-05-26] MEDS ORDERED: hydrALAZINE HCL 20 MG/ML VIAL IV PRN (21:47)
[2020-05-27] MEDS: ACETAMINOPHEN 500 MG TAB PO PRN ×3 (00:13→19:30)
[2020-05-27 05:51] LABS: Basophils # (auto) 0.01 K/uL (0-0.2); Basophils % (auto) 0.1 %; Hematocrit (blood only) 37.3 % (42-52); Hemoglobin 12.9 g/dL (14.0-18.0); Immature Granulocytes # (auto) 0.03 K/uL (0.00-0.02); Immature Granulocytes % (auto) 0.3 %; Lymphocytes # (auto) 1.83 K/uL (1.2-3.4); Lymphocytes % (auto) 19.4 %; Mean Corpuscular Hemoglobin 31.2 pg (25-34); Mean Corpuscular Hgb Conc 34.6 g/dL (32-36); Mean Corpuscular Volume 90.3 fL (80-100); Mean Platelet Volume 9.8 fL (7.4-10.4); Monocytes # (auto) 1.13 K/uL (0.11-0.59); Neutrophils # (auto) 6.43 K/uL (1.4-6.5); Neutrophils % (auto) 68.2 %; Platelet Count 105 K/uL (130-400); RDW Coefficient of Variation 12.8 % (11.5-14.5); RDW Standard Deviation 41.9 fL (36.4-46.3); Red Blood Count 4.13 M/uL (4.7-6.1); White Blood Count 9.43 K/uL (4.8-10.8)
[2020-05-27] MEDS: ceFAZolin 2000MG 2,000 MG/15 ML SYR IV SCH ×2 (06:04→14:01)
[2020-05-27 06:25] LABS: Albumin Level 2.8 gm/dl (3.4-5.0); BUN Creatinine Ratio 32.9 (10-20); Calcium 8.3 mg/dl (8.5-10.1); Creatinine Clr Calc Pharmacy 83.4 ml/min; Est GFR (African American) 101.1; Est GFR (Non-African American) 87.2; Potassium 4.1 mmol/L (3.5-5.1)
--- NOTE | 2020-05-27 07:33 | Orthopedic Progress Note ---
Date of Service May 27, 2020 Assessment & Plan (1) Status post right hip replacement: Overall he is doing fairly well. I reassured him that the femoral nerve paresthesias should wear off throughout the day today. It is either coming from the spinal anesthetic or the periarticular nerve block. He can be up and ambulating with physical therapy today. He will likely be in the hospital for a day or 2 before being discharged. He will be on aspirin 81 mg twice a day for DVT prophylaxis. Full discharge instructions were already placed in the discharge summary. Ana Laura Waterman was seen and examined at bedside this morning. Overall is doing fairly well. Is not having too much pain in the right hip. He said is been up and ambulating with a walker. He says he has good strength in his legs but he has numbness in his right quad. Otherwise, he has no complaints.. Review of Systems All systems reviewed & are unremarkable except as noted in HPI & below. Physical Exam On physical examination of the right leg, his leg lengths are equal. The dressing is clean and dry. He has some numbness in his quad he is a little bit of weakness in his quad as well. The nerve block and the periarticular injection are still in effect. Results & Data Results & Data Laboratory Results . Diagnostic Findings Postoperative x-rays of the right hip show the prosthesis to be in anatomic ali gnment without any evidence of fracture, dislocation, or loosening. PG Care Time/CCT Total # of Minutes Spent Total Time Spent with Patient: Total time spent is greater than 50% in coordination of care (as documented) at patient's floor/unit and/or counseling patient: Coding Level of Care Code 97164 Post Operative Follow-Up Diagnoses Status post right hip replacement Z96.641
[2020-05-27] MEDS ORDERED: EZETIMIBE 10 MG TABLET PO SCH (09:00)
[2020-05-27] MEDS ORDERED: LOSARTAN POTASSIUM 50 MG TAB PO SCH (09:00)
--- NOTE | 2020-05-27 09:01 | Hospitalist Progress Note ---
Date of Service May 27, 2020 Assessment & Plan (1) Fracture of hip, right, closed: * Prior fx after falling on ice approx 32 days ago * Imaging with Right hip ffracture * Dr. Limon consulted * POD#1 s/p total hip replacement. EBL 300cc. * PT/OT consulted -- recs for home health at d/c. CM following * H/h dropped to 12.9/37.3 acute blood loss anemia from surgery as well as dilutional effect as patient had been on IVF as he was NPO for surgery * DVT prophylaxis -- I confirmed with ortho and ordered ASA 81mg BID post- operatively * Vit D wnl but borderline low -- rec increasing his outpatient supplementation to 3000IU daily. Will start today * Monitor labs in AM with possible d/c Friday vs Friday per orthopedics team (2) Hypertension: * Continue losartan with hold parameters -- he actually takes 50mg QAM and 100mg QHS --> changed in system. 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 He is pushing free water and would like to avoid further IVF at this time due to increased urination through the day/night * BMP in AM Dispo: continued inpatient stay anticipate d/c tomorrow vs Friday Admission and Anticipated Discharge Date Admission Date: May 25, 2020 Subjective Patient evaluated this afternoon. Worked with therapy this morning and does have some soreness but took some tylenol prior to lunch when he got back from his walk. Seen by ortho this morning and he states they told him likely will be in hospital until Friday but we will monitor his progress. Eating/drinking without issue. Multiple BM last night since surgery. Bad experience with his father and Max catheter and this was avoided and he has been urinating without issue. His niece will be staying with him and PT with recs for home health. No fever, chills, chest pain, shortness of breath, abdominal pain, nausea, vomiting at this time. Review of Systems Review of Systems: All systems reviewed & are unremarkable except as noted in HPI & below Physical Exam Physical Exam: The patient is awake, alert and oriented 3, well developed and well nourished, normocephalic and atraumatic, up at side of bed eating turkey sandwich and beverage. HEENT--PERRL, EOMI, mucous membranes and oropharynx normal. Neck--supple. No JVD. No bruits. Thyroid normal, trachea midline, no adenopathy. Heart--normal S1 and S2. No murmurs, rubs or gallops. Calves non-tender to palpation. Pulses palpable bilaterally Lungs--clear bilaterally, no respiratory distress, no accessory muscle use. Abdomen--normal bowel sounds and soft. Nontender. Nondistended, no hernias or masses, no organomegaly. Extremities--no cyanosis or clubbing. No edema. --> right hip dressing c/d/i, some numbness to quad with associated weakness. pulses palpable bilaterally. 5/5 dorsi/plantar flexion Dermatologic--normal skin turgor, normal color, no abnormal lymph nodes, no rash. Neurologic--cranial nerves II through XII grossly intact. Psychiatric--AOx3 Results & Data Results & Data ([facility]) Vital Signs (Past 12 Hours) Vital Signs Temp Pulse Resp BP Pulse Ox 05/27/20 07:17 37.1 C 73 16 138/80 96 05/27/20 04:23 36.9 C 73 16 135/74 97 05/26/20 23:28 37.2 C 90 16 149/91 H 94 Laboratory Results 05/27/20 05/27/20 05/27/20 Range/Units 05:36 05:36 05:35 WBC 9.43 (4.8-10.8) K/uL RBC 4.13 L (4.7-6.1) M/uL Hgb 12.9 L (14.0-18.0) g/dL Hct 37.3 L (42-52) % MCV 90.3 (80-100) fL MCH 31.2 (25-34) pg MCHC 34.6 (32-36) g/dL RDW Std Deviation 41.9 (36.4-46.3) fL RDW Coeff of Kush 12.8 (11.5-14.5) % Plt Count 105 L (130-400) K/uL MPV 9.8 (7.4-10.4) fL Immature Gran % (Auto) 0.3 % Neut % (Auto) 68.2 % Lymph % (Auto) 19.4 % [place] % (Auto) 12.0 % Eos % (Auto) 0.0 % Baso % (Auto) 0.1 % Neut # (Auto) 6.43 (1.4-6.5) K/uL Lymph # (Auto) 1.83 (1.2-3.4) K/uL [place] # (Auto) 1.13 H (0.11-0.59) K/uL Eos # (Auto) 0.00 (0-0.5) K/uL Baso # (Auto) 0.01 (0-0.2) K/uL Immature Gran # (Auto) 0.03 H (0.00-0.02) K/uL Sodium 146 H (136-145) mmol/L Potassium 4.1 (3.5-5.1) mmol/L Chloride 115 H (98-107) mmol/L Carbon Dioxide 28 (21-32) mmol/L Anion Gap 3.0 (3-11) BUN 29 H (7-18) mg/dl Creatinine 0.89 (0.6-1.4) mg/dl Est Cr Clr Drug Dosing 83.4 ml/min Est GFR ( Amer) 101.1 Est GFR (Non-Af Amer) 87.2 BUN/Creatinine Ratio 32.9 H (10-20) Glucose 115 H (70-99) mg/dl Calcium 8.3 L (8.5-10.1) mg/dl Phosphorus 3.0 (2.5-4.9) mg/dl Total Bilirubin (0.2-1) mg/dl Direct Bilirubin (0-0.2) mg/dl AST (15-37) U/L ALT (12-78) U/L Alkaline Phosphatase (45-117) U/L Total Protein (6.4-8.2) gm/dl Albumin 2.8 L (3.4-5.0) gm/dl 25-OH Vitamin D Total Pending 05/26/20 Range/Units 05:55 WBC (4.8-10.8) K/uL RBC (4.7-6.1) M/uL Hgb (14.0-18.0) g/dL Hct (42-52) % MCV (80-100) fL MCH (25-34) pg MCHC (32-36) g/dL RDW Std Deviation (36.4-46.3) fL RDW Coeff of Kush (11.5-14.5) % Plt Count (130-400) K/uL MPV (7.4-10.4) fL Immature Gran % (Auto) % Neut % (Auto) % Lymph % (Auto) % [place] % (Auto) % Eos % (Auto) % Baso % (Auto) % Neut # (Auto) (1.4-6.5) K/uL Lymph # (Auto) (1.2-3.4) K/uL [place] # (Auto) (0.11-0.59) K/uL Eos # (Auto) (0-0.5) K/uL Baso # (Auto) (0-0.2) K/uL Immature Gran # (Auto) (0.00-0.02) K/uL Sodium (136-145) mmol/L Potassium (3.5-5.1) mmol/L Chloride (98-107) mmol/L Carbon Dioxide (21-32) mmol/L Anion Gap (3-11) BUN (7-18) mg/dl Creatinine (0.6-1.4) mg/dl Est Cr Clr Drug Dosing ml/min Est GFR ( Amer) Est GFR (Non-Af Amer) BUN/Creatinine Ratio (10-20) Glucose (70-99) mg/dl Calcium (8.5-10.1) mg/dl Phosphorus (2.5-4.9) mg/dl Total Bilirubin 0.9 (0.2-1) mg/dl Direct Bilirubin < 0.1 (0-0.2) mg/dl AST 22 (15-37) U/L ALT 30 (12-78) U/L Alkaline Phosphatase 61 (45-117) U/L Total Protein 5.5 L (6.4-8.2) gm/dl Albumin 3.1 L (3.4-5.0) gm/dl 25-OH Vitamin D Total PG Care Time/CCT Total # of Minutes Spent Total Time Spent with Patient: Total time spent is greater than 50% in coordination of care (as documented) at patient's floor/unit and/or counseling patient: Coding Level of Care Code 77131 Subseq Hosp Care Lvl 2 Diagnoses Fracture of hip, right, closed S72.001A Encounter type: initial encounter Hypertension I10 Hyperlipidemia E78.5 Vitamin D deficiency E55.9 (1) Fracture of hip, right, closed Encounter type: initial encounter Qualified Code(s): S72.001A - Fracture of unspecified part of neck of right femur, initial encounter for closed fracture
[2020-05-27] MEDS: ASPIRIN 81 MG ECTAB PO SCH ×2 (09:19→19:33)
[2020-05-27] MEDS: MAGNESIUM OXIDE 400 MG TAB PO SCH (09:19)
[2020-05-27] MEDS: LOSARTAN POTASSIUM 50 MG TAB PO SCH ×2 (09:20→19:33)
[2020-05-27] MEDS ORDERED: DEXTROSE 5% 1,000 ML IV SCH (09:30)
[2020-05-27] MEDS ORDERED: Nursing to Pharmacy Communication SCH (11:15)
[2020-05-27] MEDS: CHOLECALCIFEROL 1,000 UNITS 25 MCG TAB PO SCH (14:07)
[2020-05-27] MEDS ORDERED: bisacodyL 5 MG TABEC PO PRN (17:23)
[2020-05-27] MEDS ORDERED: ONDANSETRON 4 MG OD TAB PO PRN (17:23)
[2020-05-27] MEDS: ursodioL 300 MG CAP PO SCH (19:32)
[2020-05-27] MEDS: EZETIMIBE 10 MG TABLET PO SCH (19:35)
[2020-05-27] MEDS: oxyCODONE HCL IR 5 MG TAB (IMMEDIATE RELEASE) PO PRN (23:44)
[2020-05-28] MEDS: oxyCODONE HCL IR 5 MG TAB (IMMEDIATE RELEASE) PO PRN (05:16)
[2020-05-28 06:15] LABS: Hemoglobin 13.4 g/dL (14.0-18.0); Immature Granulocytes # (auto) 0.03 K/uL (0.00-0.02); Immature Granulocytes % (auto) 0.4 %; Lymphocytes % (auto) 23.4 %; Mean Corpuscular Hemoglobin 31.7 pg (25-34); Mean Corpuscular Hgb Conc 35.3 g/dL (32-36); Mean Corpuscular Volume 89.8 fL (80-100); Mean Platelet Volume 9.9 fL (7.4-10.4); Monocytes # (auto) 0.97 K/uL (0.11-0.59); Monocytes % (auto) 14.2 %; Neutrophils # (auto) 4.23 K/uL (1.4-6.5); Platelet Count 109 K/uL (130-400); RDW Standard Deviation 42.6 fL (36.4-46.3); Red Blood Count 4.23 M/uL (4.7-6.1); White Blood Count 6.83 K/uL (4.8-10.8)
[2020-05-28 06:52] LABS: Albumin Level 2.9 gm/dl (3.4-5.0); BUN Creatinine Ratio 26.9 (10-20); Calcium 8.7 mg/dl (8.5-10.1); Creatinine Clr Calc Pharmacy 75.8 ml/min; Est GFR (African American) 90.8; Est GFR (Non-African American) 78.4; Phosphorus 2.7 mg/dl (2.5-4.9); Potassium 3.7 mmol/L (3.5-5.1)
[2020-05-28] MEDS: ACETAMINOPHEN 500 MG TAB PO PRN ×3 (07:41→20:59)
--- NOTE | 2020-05-28 07:49 | Orthopedic Progress Note ---
Date of Service May 28, 2020 Assessment & Plan (1) Status post right hip replacement: Overall he is doing about as well as expected. Given the soreness that he is having in his hip today, and the fact that he lives alone, I think it would be best if he can be discharged to an acute rehab facility such as [facility]. I think he will get the appropriate therapy there before returning home. Once he returns home I recommend [facility] to come to his house to do the remainder of his physical therapy. He is orthopedically stable for discharge when medically ready and when a bed becomes available at a rehab facility. The Silverlon dressing will stay on for 7 days. He will take aspirin 81 mg twice a day for DVT prophylaxis. Full orthopedic discharge instructions were placed in the discharge summary. He can follow-up in our office in 2 to 3 weeks for staple removal. Ana Laura Waterman was seen and examined at bedside this morning. The nerve block is worn off and he is having much more pain in his right hip. He was able to ambulate well with physical therapy yesterday but he is concerned about being able to ambulate well today. He is very concerned about going home today. He lives alone and he does not feel that he is ready. Now that he better understands the soreness that he has in his hip, he is interested in possibly going to rehab for short stay before returning home.. Review of Systems All systems reviewed & are unremarkable except as noted in HPI & below. Physical Exam On physical examination of the right hip, the dressing is clean and dry. His leg lengths are equal. He has active dorsiflexion plantarflexion of the right ankle.. Results & Data Results & Data Laboratory Results . Diagnostic Findings . PG Care Time/CCT Total # of Minutes Spent Total Time Spent with Patient: Total time spent is greater than 50% in coordination of care (as documented) at patient's floor/unit and/or counseling patient: Coding Level of Care Code 16415 Post Operative Follow-Up Diagnoses Status post right hip replacement Z96.641
[2020-05-28] MEDS: MAGNESIUM OXIDE 400 MG TAB PO SCH (08:24)
[2020-05-28] MEDS: LOSARTAN POTASSIUM 50 MG TAB PO SCH ×2 (08:24→20:57)
[2020-05-28] MEDS: CHOLECALCIFEROL 1,000 UNITS 25 MCG TAB PO SCH (08:24)
[2020-05-28] MEDS: ASPIRIN 81 MG ECTAB PO SCH ×2 (08:25→20:57)
[2020-05-28] MEDS: POLYETHYLENE (MIRALAX) 17 GM PACK PO SCH (08:25)
--- NOTE | 2020-05-28 08:39 | Hospitalist Progress Note ---
Date of Service May 28, 2020 Assessment & Plan (1) Fracture of hip, right, closed: * Prior fx after falling on ice approx 32 days ago * Imaging with Right hip ffracture * Dr. Limon consulted * POD#2 s/p total hip replacement. EBL 300cc. * PT/OT consulted -- recs for home health at d/c. CM following * H/h dropped to 12.9/37.3 acute blood loss anemia from surgery as well as dilutional effect as patient had been on IVF as he was NPO for surgery --> h/h improved to 13.4/38 * DVT prophylaxis ASA 81mg BID * Vit D wnl but borderline low -- rec increasing his outpatient supplementation to 3000IU daily. Started * Monitor AM labs but patient likely ready for d/c to [facility] tomorrow. CM following. Patient already spoke with mehran (2) Hypertension: * BP controlled generally, however increased in setting of pain, 154/78 * Continue losartan with hold parameters -- he actually takes 50mg QAM and 100mg QHS --> changed in system. 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 CM following Admission and Anticipated Discharge Date Admission Date: May 25, 2020 Subjective Patient evaluated this afternoon. Took pain medication twice as block wore off. Able to walk further today. Seen by Dr. Limon this AM and now plans for d/c to [facility] tomorrow given living situation. No fever, chills, chest pain, shortness of breath, abdominal pain. Making good urine. Passing gas. No BM since evening after surgery --> eating lots of fiber and given miralax and senna today. Will order additional miralax as he notes he would like to have one before the evening gets here. Questions/concerns addressed at this time. Review of Systems Review of Systems: All systems reviewed & are unremarkable except as noted in HPI & below Physical Exam Physical Exam: The patient is awake, alert and oriented 3, well developed and well nourished, normocephalic and atraumatic, up at side of bed eating breakfast HEENT--PERRL, EOMI, mucous membranes and oropharynx normal. Neck--supple. No JVD. No bruits. Thyroid normal, trachea midline, no adenopathy. Heart--normal S1 and S2. No murmurs, rubs or gallops. Calves non-tender to palpation. Pulses palpable bilaterally Lungs--clear bilaterally, no respiratory distress, no accessory muscle use. Abdomen--normal bowel sounds and soft. Nontender. Nondistended, no hernias or masses, no organomegaly. Extremities--no cyanosis or clubbing. No edema. --> right hip silverlon dressing c/d/i, some erythema to medial aspect of dressing that was tender but improved with topical per patient. pulses palpable bilaterally. 5/5 dorsi/plantar flexion Dermatologic--normal skin turgor, normal color, no abnormal lymph nodes, no rash. Neurologic--cranial nerves II through XII grossly intact. Psychiatric--AOx3 Results & Data Results & Data ([facility]) Vital Signs (Past 12 Hours) Vital Signs Temp Pulse Resp BP Pulse Ox 05/28/20 07:39 37.2 C 78 16 154/78 H 97 05/27/20 23:11 37.0 C 83 16 168/88 H 97 Laboratory Results 05/28/20 05/28/20 05/27/20 Range/Units 05:35 05:35 05:35 WBC 6.83 (4.8-10.8) K/uL RBC 4.23 L (4.7-6.1) M/uL Hgb 13.4 L (14.0-18.0) g/dL Hct 38.0 L (42-52) % MCV 89.8 (80-100) fL MCH 31.7 (25-34) pg MCHC 35.3 (32-36) g/dL RDW Std Deviation 42.6 (36.4-46.3) fL RDW Coeff of Kush 13.0 (11.5-14.5) % Plt Count 109 L (130-400) K/uL MPV 9.9 (7.4-10.4) fL Immature Gran % (Auto) 0.4 % Neut % (Auto) 62.0 % Lymph % (Auto) 23.4 % [place] % (Auto) 14.2 % Eos % (Auto) 0.0 % Baso % (Auto) 0.0 % Neut # (Auto) 4.23 (1.4-6.5) K/uL Lymph # (Auto) 1.60 (1.2-3.4) K/uL [place] # (Auto) 0.97 H (0.11-0.59) K/uL Eos # (Auto) 0.00 (0-0.5) K/uL Baso # (Auto) 0.00 (0-0.2) K/uL Immature Gran # (Auto) 0.03 H (0.00-0.02) K/uL Sodium 145 (136-145) mmol/L Potassium 3.7 (3.5-5.1) mmol/L Chloride 112 H (98-107) mmol/L Carbon Dioxide 29 (21-32) mmol/L Anion Gap 4.0 (3-11) BUN 26 H (7-18) mg/dl Creatinine 0.98 (0.6-1.4) mg/dl Est Cr Clr Drug Dosing 75.8 ml/min Est GFR ( Amer) 90.8 Est GFR (Non-Af Amer) 78.4 BUN/Creatinine Ratio 26.9 H (10-20) Glucose 108 H (70-99) mg/dl Calcium 8.7 (8.5-10.1) mg/dl Phosphorus 2.7 (2.5-4.9) mg/dl Albumin 2.9 L (3.4-5.0) gm/dl 25-OH Vitamin D Total 37.9 (30-100) ng/ml PG Care Time/CCT Total # of Minutes Spent Total Time Spent with Patient: Total time spent is greater than 50% in coordination of care (as documented) at patient's floor/unit and/or counseling patient: Coding Level of Care Code 49456 Subseq Hosp Care Lvl 2 Diagnoses Fracture of hip, right, closed S72.001A Encounter type: initial encounter Hypertension I10 Hyperlipidemia E78.5 Vitamin D deficiency E55.9 (1) Fracture of hip, right, closed Encounter type: initial encounter Qualified Code(s): S72.001A - Fracture of unspecified part of neck of right femur, initial encounter for closed fracture
[2020-05-28] MEDS: DOCUSATE SODIUM/SENNA 50/8.6MG TAB PO SCH (12:01)
[2020-05-28] MEDS ORDERED: POLYETHYLENE (MIRALAX) 17 GM PACK PO ONE (12:49)
[2020-05-28] MEDS: ursodioL 300 MG CAP PO SCH (20:55)
[2020-05-28] MEDS: EZETIMIBE 10 MG TABLET PO SCH (20:56)
[2020-05-29] MEDS: oxyCODONE HCL IR 5 MG TAB (IMMEDIATE RELEASE) PO PRN (05:27)
[2020-05-29] MEDS: POLYETHYLENE (MIRALAX) 17 GM PACK PO SCH (07:56)
[2020-05-29] MEDS: ASPIRIN 81 MG ECTAB PO SCH (07:57)
[2020-05-29] MEDS: MAGNESIUM OXIDE 400 MG TAB PO SCH (07:57)
[2020-05-29] MEDS: LOSARTAN POTASSIUM 50 MG TAB PO SCH (07:58)
[2020-05-29] MEDS: DOCUSATE SODIUM/SENNA 50/8.6MG TAB PO SCH (07:59)
[2020-05-29] MEDS: CHOLECALCIFEROL 1,000 UNITS 25 MCG TAB PO SCH (07:59)
[2020-05-29] MEDS ORDERED: SOD PHOSPHATE/SOD BIPHOSPHATE ENEMA 132 ML BTL PR STA (08:13)
[2020-05-29] MEDS: ACETAMINOPHEN 500 MG TAB PO PRN (13:29)
--- NOTE | 2020-06-05 23:46 | Discharge Summary ---
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 He reports that about 31 days ago, he slipped and fell on some black ice, landing on his right hip. He did develop immediate pain in his right hip and groin area, but thought it was just a bruise. He reports using a small letter to help him balance walking recently, and had an x-ray performed in the outpatient setting with suggested closed right hip fracture, at which time he was referred to the ED for assessment. Principal Diagnosis fracture of right hip closed Discharge Exam The patient is awake, alert and oriented 3, well developed and well nourished, normocephalic and atraumatic, up at side of bed eating breakfast HEENT--PERRL, EOMI, mucous membranes and oropharynx normal. Neck--supple. No JVD. No bruits. Thyroid normal, trachea midline, no adenopathy. Heart--normal S1 and S2. No murmurs, rubs or gallops. Calves non-tender to palpation. Pulses palpable bilaterally Lungs--clear bilaterally, no respiratory distress, no accessory muscle use. Abdomen--normal bowel sounds and soft. Nontender. Nondistended, no hernias or masses, no organomegaly. Extremities--no cyanosis or clubbing. No edema. --> right hip silverlon dressing c/d/i, some erythema to medial aspect of dressing that was tender but improved with topical per patient. pulses palpable bilaterally. 5/5 dorsi/plantar flexion Dermatologic--normal skin turgor, normal color, no abnormal lymph nodes, no rash. Neurologic--cranial nerves II through XII grossly intact. Psychiatric--AOx3 Discharge Data Allergies Allergy/AdvReac Type Severity Reaction Status Date / Time Sulfate Allergy Mild CHILD - Uncoded 05/25/20 22:37 nausea Procedures Performed Operation Date: 05/26/20 07:00 Actual Procedures p Right Anterior Total Hip Arthroplasty, Uncemented(Right) - Herve Limon DO Ordered Studies 05/26/20 13:00 FL fluoroscopy <1hr Routine FL hip RT 1V Routine Hospital Course (1) Fracture of hip, right, closed: * Prior fx after falling on ice approx 32 days ago * Imaging with Right hip ffracture * Dr. Limon consulted * POD#3 s/p total hip replacement. EBL 300cc. * PT/OT consulted -- recs for home health at d/c. CM following * H/h dropped to 12.9/37.3 acute blood loss anemia from surgery as well as dilutional effect as patient had been on IVF as he was NPO for surgery --> h/h improved to 13.4/38 * DVT prophylaxis ASA 81mg BID * Vit D wnl but borderline low -- rec increasing his outpatient supplementation to 3000IU daily. Started * ready for d/c to [facility] today. CM following. Patient already spoke with mehran (2) Hypertension: * BP controlled generally, however increased in setting of pain, 154/78 * Continue losartan with hold parameters -- he actually takes 50mg QAM and 100mg QHS --> changed in system. 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 * Suspected given fall and on supplementation at home -- Vit D low normal and increased daily supplementation to 3000IU to continue at discharge Total Time Total Time Spent Total Time Spent (In Minutes): 32 Discharge Plan Discharge Items Patient Disposition: Transfer Inpatient Rehab Fac Reason For Visit: CLOSED RIGHT HIP FRACTURE Discharge Diagnosis: CLOSED RIGHT HIP FRACTURE Activity: Resume your previous activity Non-emergency contact: Primary Care Provider Call non-emergency contact if: you have any medication questions Follow-up/Referrals: Brennon Cerrato MD [Primary Care Provider] - Diet: Heart Healthy and Vegetarian (Lacto-Ovo) Addtl Attending Provider Instructions: Activity and Therapy Recommendations: * If you are using [facility] then therapy will be provided at your home until they feel you have accomplished all of your goals. * If you are using [facility] then Physical Therapy will be provided until they feel you are ready to start Outpatient Physical Therapy. * If you are not using home therapy then Outpatient Physical Therapy should start about 3-5 days from your day of surgery. Therapy will last about 6-10 weeks * You were shown a series of exercises in the hospital. Do these exercises three times each day including the exercises you were shown in physical therapy. * Get up and walk several times each day.~ For the first four weeks, try not to stand or walk for more than one hour at a time. If you do stand or walk for more than one hour, you will not hurt anything, but your leg will likely swell.~~ * As you feel comfortable, you may change from the walker or crutches to a cane and~then to independent walking. Medications: * Narcotic You will likely be sent home from the hospital with a prescription for the narcotic pain medication that worked best throughout your stay. * Aspirin Most patients will be required to take Aspirin 81mg twice a day for 6 weeks after surgery. This is obtained [id number] and a prescription is not necessary. * Other medications may be prescribed for specific circumstances. If you have any questions, please call the office at . * Resume previous home medications unless otherwise instructed TEDs/Elastic Stockings: The white elastic stockings help limit swelling and prevent blood clots from forming in your legs. The more you wear them, the more they work. Wear them for six weeks. Dressing Care: Leave the Silverlon dressing in place for 7 days. After 7 days you may remove the dressing. If the incision is not draining then you may leave the carola open to air. If there is a little bit of drainage or if the carola are getting stuck on your clothing then cover the incision with a dry dressing. The carola will be removed at your 2 week follow-up appointment. Showering: You may shower with the Silverlon dressing in place. Do not let the shower spray hit the dressing directly. Pat the Silverlon dressing dry. If the dressing becomes wet underneath, then simply remove the dressing. Keep the incision dry until you are 7 days out from the day of surgery. After 7 days you may remove the Silverlon dressing and shower with the carola exposed. Let soapy water run over the carola and pat them dry. Do not scrub or soak the incision. Things To Watch For: * Drainage from the incision site that occurs more than one week after your surgery. * Increased redness at the incision site. * Fever above 102 degrees Fahrenheit. * Unusual chest pain or shortness of breath. * Call [facility] at with any of the above problems Follow-Up Visit: Follow-up with Dr. Limon's PA (Herve Hua) 2-3 weeks after your day of surgery. He will remove your carola and answer any questions. If you have any additional questions or concerns, Dr Limon is usually in the office at the same time and will be available An appointment was probably scheduled when you signed-up for surgery in the office. If you have any questions call Office Instructions: More detailed instructions as well as Frequently Asked Questions were provided in a folder by our office when you signed-up for surgery. Please review these instructions when you get home. If you have any further questions or concerns, please feel free to call the office at [phone] Pending Studies at Discharge: No Stand-Alone Forms: My [facility] Skilled Items Patient informed of condition?: Yes DNR: No Discharge Level of Care: Acute rehab Communicable Disease: No Discharge Prognosis: Stable Lines: None Urinary Catheter: No Medications and DC Order Prescriptions: New aspirin 81 mg Tablet,Delayed Release (Dr/Ec) 81 mg PO BID Qty: 60 RF: 0 acetaminophen 500 mg Tablet 1,000 mg PO Q6H PRN (Reason: PAIN) Qty: 30 RF: 0 oxycodone 5 mg Tablet 5 mg PO DAILY PRN (Reason: SEVERE PAIN) Qty: 5 RF: 0 polyethylene glycol 3350 [Miralax] 17 gram Powder In Packet 17 g PO DAILY Qty: 14 RF: 0 sennosides-docusate sodium [Senokot-S] 8.6-50 mg Tablet 1 tab PO QAM Qty: 20 RF: 0 Continued ascorbic acid (vitamin C) 500 mg tablet 500 mg PO BID RF: 0 cholecalciferol (vitamin D3) 2,000 unit tablet 2,000 unit PO DAILY RF: 0 losartan 50 mg tablet 50 mg PO QAM RF: 0 ezetimibe 10 mg tablet 10 mg PO DAILY RF: 0 losartan 100 mg tablet 100 mg PO HS RF: 0 vitamin E 200 unit Capsule 200 unit PO DAILY RF: 0 ursodiol 250 mg tablet 500 mg PO HS RF: 0 magnesium 250 mg Tablet 250 mg PO DAILY RF: 0 Discharge Orders: Discharge Order (Routine); Ordered 05/29/20 Ordered By: Elbert Coello Admission Data Admit Date/Time: 05/25/20 23:39 Attending Provider: Elbert Coello Admit Provider: Silvano Brower Primary Care Provider: Brennon Cerrato Other Providers: Herve Limon Other Interventions: Discharge Summary Assessment (RN) Last Done: 05/29/20 15:30 Coding Level of Care Code D/C Day Management >30 mins Diagnoses Fracture of hip, right, closed S72.001A Encounter type: initial encounter Hypertension I10 Hyperlipidemia E78.5 Vitamin D deficiency E55.9
== END 2020-05-29 16:50 | DRG 522 ==
LOC: ED 20:34 → SUATTDRO 23:39 → 3N 23:39